=== PATIENT | female | born 1930 | race Caucasian/White ===

== ENCOUNTER → 2016-12-04 | Outpatient (CLI) | payer OTHER ==
[~2016-12-04] MED LIST: ASPI81TA28 PO; CHOL100010 PO; EZET10TA63 PO; METO25TA56 PO; MULT-513 PO; POLY335019 PO; RANI150T3 PO; TRIA3AER NAE; ZOLP5TAB6 PO
[2016-12-04 17:34] LABS: BASO % 0.5 %; BASO ABS # 0.02 K/uL (0-0.2); COMPLETE YES; EOS % 5.4 %; HEMATOCRIT 37.6 % (37-47); LYMPH ABS # 1.45 K/uL (1.2-3.4); MEAN CELL VOLUME 94.7 fL (80-100); MEAN CORPUSCULAR HEMOGLOBIN 31.7 pg (25-34); MEAN CORPUSCULAR HGB CONC 33.5 g/dl (32-36); MEAN PLATELET VOLUME 9.5 fL (7.4-10.4); MONO % 11.5 %; NEUT % 48.6 %; PLATELET COUNT 193 K/uL (130-400); RED BLOOD COUNT 3.97 M/uL (4.2-5.4); WHITE BLOOD COUNT 4.26 K/uL (4.8-10.8)
[2016-12-04 17:51] LABS: BLOOD UREA NITROGEN 31 mg/dl (7-18); GLUCOSE 82 mg/dl (70-99)
[2016-12-04 17:52] LABS: ALT/SGPT 33 U/L (12-78); AST/SGOT 23 U/L (15-37); BUN/CREATININE RATIO 28.5 (10-20); CALCIUM 8.9 mg/dl (8.5-10.1); CARBON DIOXIDE 30 mmol/L (21-32); CHLORIDE 106 mmol/L (98-107); SODIUM 142 mmol/L (136-145)
[2016-12-04 18:02] LABS: ALB/GLOB RATIO 1.4 (0.9-2); ALKALINE PHOSPHATASE 48 U/L (45-117); CHOLESTEROL 155 mg/dl (0-200); CHOLESTEROL/HDL RATIO 2.3; HDL CHOLESTEROL 68 mg/dl; LDL CHOLESTEROL CALCULATED 72 mg/dl; TRIGLYCERIDES 73 mg/dl (0-150); VERY LOW DENSITY LIPOPROT CALC 15 mg/dl
== END | disposition home or self-care (01) ==
LOC: C.LABPBG 14:36
PROVIDERS: ATTEND Internal Medicine Geriatric Medicine
DX: I47.1 Supraventricular tachycardia (principal); I10 Essential (primary) hypertension; M19.90 Unspecified osteoarthritis, unspecified site; E78.5 Hyperlipidemia, unspecified; D72.819 Decreased white blood cell count, unspecified; E55.9 Vitamin D deficiency, unspecified; R00.1 Bradycardia, unspecified; S83.519A Sprain of anterior cruciate ligament of unspecified knee, initial encounter; X58.XXXA Exposure to other specified factors, initial encounter

== ENCOUNTER → 2017-04-30 | Outpatient (CLI) | payer OTHER ==
--- NOTE | 2017-04-30 13:31 | MAMMOGRAPHY REPORT ---
BILATERAL DIGITAL SCREENING MAMMOGRAM WITH CAD: 04/30/2017 CLINICAL HISTORY: Routine screening. Patient has no complaints. TECHNIQUE: Bilateral CC and MLO views were obtained. Current study was also evaluated with a Comput er Aided Detection (CAD) system. COMPARISON: Comparison is made to exams dated: 04/25/2015 mammogram, 04/27/2016 mammogram, 04/28/2014 m ammogram, 04/21/2014 mammogram, 04/20/2013 mammogram, and 04/03/2012 mammogram - [facility] enter. BREAST COMPOSITION: There are scattered areas of fibroglandular density in both breasts. FINDINGS: There are a few scattered benign round microcalcifications and mild vascular calcification in the breasts. Stable asymmetry in the lateral right breast. No new suspicious mass, architectural distortion or cluster of microcalcifications is seen. IMPRESSION: ACR BI-RADS CATEGORY 1: NEGATIVE There is no mammographic evidence of malignancy. A 1 year screening mammogram is recommended. The pa tient will receive written notification of the results. Approximately 10% of breast cancers are not detected with mammography. A negative mammographic report should not delay biopsy if a clinically suggestive mass is present. Jolene Mcclure M.D. ay/:04/30/2017 12:36:05 Legal Process Specialist: Grace Francis, [facility] letter sent: Normal 1/2 BI-RADS Code: ACR BI-RADS Category 1: Negative
== END | disposition home or self-care (01) ==
LOC: C.MAMM 10:31
PROVIDERS: ATTEND Internal Medicine Geriatric Medicine
DX: Z12.31 Encounter for screening mammogram for malignant neoplasm of breast (principal)

== ENCOUNTER → 2017-05-02 | Outpatient (CLI) | payer OTHER ==
--- NOTE | 2017-05-03 06:01 | PAP/PSG TECHNICIAN REPORT ---
[facility] Fitting Room Supervisor Polysomnogram Report Study name: None Report date: 05/03/2017 Study date: 05/02/2017 Referring Physician: Carlos Austin M.D. Name: LUCIA ROBLES Interpreting Physician: Alfred Cole M.D. Date of : 1930 Fitting Room Supervisor: Manisha Bishop [facility]. Sex: Female Age: 86 Study Type: PSG Weight: 137 lbs Height: 86 years, Height 5' 2.5" BMI: 24.66 Medications: POLYETHYLENE GLYCOL, ZETIA 10 MG, ZOLPIDEM TARTRATE 5 MG, ASPIRIN 81 MG, METORPOLOL 25 MG, TRIAMCINOLONE ACETONIDE, MULTI VITS, VIT D 1000 UNIT, ZANTAC 150 MG Patient History 86 yr-old female here for a baseline/split study. She has had previous sleep testing in 2008. She is back to assess her SONIA. The test was started on room air. ETCO2 testing was not utilized during this study. Room 6 Parameters Monitored NPSG: E1-M2, E2-M1, Fp1-M2, Fp2-M1, F3-M2, F4-M2, F4-M1, C3-M2, C4-M2, C4-M1, O1-M2, O2-M2, O2-M1, T3-M2, T4-M1, P3-M2, P4-M1, CHIN1, CHIN2, HR, EKG, Legs, PFLOW, SNOR, FLOW, CFLOW, Tidal Volume, THOR, ABDO, SpO2, PLTH, CPRESS, ETCO2 Wave, ETCO2, pH Sleep Architecture Sleep Stages Time at Lights Off 10:45:13 PM STAGES Time (min.) TST (%) Time at Lights On 5:31:43 AM Wake 149.0 -- Total Recording Time (TRT) 406.50 min. N1 27.5 11 Total Sleep Period (TSP) 387.0 min. N2 170.5 66 Total Sleep Time (TST) 257.5min. N3 10.0 4 Awake Time 149.0 min. REM 49.5 19 Wake after Sleep Onset 129.5 min. Sleep Efficiency (SE) 63 % Sleep Onset Latency (ELISABETH) 19.5 min. Number of Stage 1 Shifts None Awakenings 12 Stage Changes 71 Number of REM periods 2 REM 49.5 19 REM Latency 183.5 min. NREM 208.0 81 Body Position Analysis Supine Right Left Side Prone Vertical Total Sleep Time (min.) 406.5 0.0 0.0 0.00 0.0 0.0 Total Sleep Time (%) 100% 0% 0% 0 0% N/A% Total Sleep Time REM (min.) 49.5 0.0 0.0 None 0.0 0.0 Total Sleep Time NREM (min.) 208.0 0.0 0.0 None 0.0 0.0 Intermittent Wake (min.) 149.0 0.0 0.0 None 0.0 0.0 Total Sleep Period (%) 100% None None None None None Arousals Myoclonus (PLM) * Events Count Index Events Count Index Spontaneous 17 4 Events Awake (PLMW) 152 61.2 Respiratory 5 1.4 Events Asleep w/ Arousal (PLMA) 16 3.7 PLM 16 4 Events Asleep w/o Arousal (PLMS) 220 51.3 Snoring 0 0 Total Asleep 236 55.0 Total 38 9 Total 388 57 Respiratory Analysis * CA OA MA CH H RERA Total Count 0 69 0 0 74 3 143 Index 0.0 16.1 0.0 0 17.2 1 34.0 Mean Duration 0.0 21.5 0.0 0.00 24.3 21.6 22.9 Longest Duration 0.0 52.8 0.0 0.00 0.0 26.2 52.8 Respiratory Event Summary Total Supine ~Supine Right Left Prone REM NREM Apneas Count 69 69 N/A N/A N/A N/A 18 51 Index 16.1 16 N/A N/A N/A N/A 22 15 Hypopneas (4% Desat) Count 74 74 N/A N/A N/A N/A 21 53 Index 17.2 17.2 N/A N/A N/A N/A 25.5 15.3 Apneas & All Hypopneas Count 143 143 N/A N/A N/A N/A 39 104 Index 33.3 33 N/A N/A N/A N/A 47.3 30.0 Respiratory Events (Inspector Water Pollution Control+All Hyp+RERA) Count 143 146 N/A N/A N/A N/A 39 104 Index 34.0 34 N/A N/A N/A N/A 47.3 30.9 Respiratory Related Arousal Count 5 146 N/A N/A N/A N/A 1 5 Index 1.4 1 N/A N/A N/A N/A 1 1 Snoring Analysis Supine Right Left Prone REM NREM Total Snore duration 8.8 min Snores count 430 N/A N/A N/A 114 316 430 Snore mean duration 1.2 Sec Snores index 100 N/A N/A N/A 138.2 91.2 100.2 TST with snoring (%) 3.4% Desaturation Event Summary: Minimum %SpO2 Event Count Mean/Min/Max Duration(sec.) Desaturation Index % Time In Bed > 90 136 26.2 / 5.8 / 59.8 29.7 70.8 86 - 90 21 23.5 / 11.0 / 59.8 11.6 28.1 81 - 85 2 10.6 / 4.5 / 16.8 30.1 1.0 76 - 80 0 N/A 0.0 0.0 71 - 75 1 4.5 / 4.5 / 4.5 800.0 0.0 66 - 70 0 N/A 0.0 0.0 61 - 65 0 N/A 0.0 0.0 56 - 60 0 N/A 0.0 0.0 51 - 55 0 N/A 0.0 0.0 < 50 0 N/A 0.0 0.0 Total REM NREM Awake <50% 0.0 min. 0.0 min. 0.0 min. 0.0 min. 51 - 60% 0.0 min. 0.0 min. 0.0 min. 0.0 min. 61 - 70% 0.0 min. 0.0 min. 0.0 min. 0.0 min. 71 - 80% 0.2 min. 0.0 min. 0.1 min. 0.1 min. 81 - 90% 113.1 min. 22.7 min. 83.8 min. 6.5 min. 91 - 100% 275.1 min. 26.8 min. 124.0 min. 124.3 min. Average 92 90 91 93 Minimum SpO2 73 81 79 73 Desaturation Event Index 21.1 40.0 27.1 6.4 # Desat. Events below 89% 59 25 31 3 Time(%) with Saturation below 89% 4.9 2.8 2.0 0.1 Time(min.) with Saturation below 89% 19.1 10.8 7.7 0.6 Time (mins) REM (mins) NREM (mins) % of TST SpO2 Below 90% 124 33 N91 18.7 SpO2 Below 88% 26 0 0 4 Heart Rate Analysis Min (bpm) Max (bpm) Average (bpm) Awake 53 281 61 NREM 51 69 56 REM 52 66 55 Overall 51 69 56 Supplemental O2 Values Minimum O2 level: None Value Start Time End Time Fitting Room Supervisor Comments Ms. Robles slept only in the supine position. No cardiac arrhythmias were noted. PLMs were noted. No bruxism noted. Snoring was noted and scored as a 2 on a scale of 1 through 5. (0=no snoring, 5=snoring loud enough to be heard through a closed door or down the hicks way) She awoke to use the restroom two times during the night. Ms. Robles stated that she slept almost like usual. The final report will be interpreted and signed by a sleep physician. The completed physician report will then be placed in the patient medical record. Therapy (cm H2O) 0 TIB (min.) 406.5 TST (min.) 257.5 Sleep Onset (min.) 19.5 REM Onset From Sleep (min.) 183.5 Sleep Efficiency % 63 Wakefulness (%) 37 Wakefulness (min.) 149.0 NREM 1 (%) 11 NREM 1 (min.) 27.5 NREM 2 (%) 66 NREM 2 (min.) 170.5 NREM 3 (%) 4 NREM 3 (min.) 10.0 REM (%) 19 REM (min.) 49.5 # Arousals 38 Arousal Index 9 # Snore 430 Snore Index 100.2 AHI 33.3 AHI Supine 33 AHI Non-Supine N/A NREM AHI 30.0 REM AHI 47.3 RDI 34.0 # Obstructive Apnea 69 # Central Apnea 0 # Mixed Apnea 0 # Hypopneas 74 RERAs 3 Total Respiratory Events 146 Time Below SpO2 89% (min.) 18.6 Mean NREM SpO2 (%) 91 Mean REM SpO2 (%) 90 Mean Sleep SpO2 (%) 91 Min NREM SpO2 (%) 79 Min REM SpO2 (%) 81 Position Supine (min.) 406.5 Position Non-supine (min.) 0.0 LM Index Sleep 55.0 LM Index NREM 60.3 LM Index REM 32.7 Mean Heart Rate (bpm) 56 Min Heart Rate (bpm) 51
--- NOTE | 2017-05-03 10:00 | POLYSOMNOGRAPH REPORT ---
CLINICAL DATA: The patient is an 86-year-old female with BMI of 24.[address] Carlos Austin for a baseline/split night study. She had previous sleep testing in 2008 and is back to assess her sleep apnea. SLEEP ARCHITECTURE: Total recording time was 406.5 minutes. Total sleep period was 387 minutes. Total sleep time was 257.5 minutes divided between 208 minutes of non-REM sleep and 49.5 minutes of REM sleep. Sleep onset latency was 19.5 minutes. REM latency was delayed at 183.5 minutes. Sleep efficiency was 63%. Wake after sleep onset was 129.5 minutes. Sleep consisted of stage N1 11%, stage N2 66%, stage N3 4%, and REM 19%. AROUSAL DATA: 38 arousals were recorded for an index of 9 per hour. PLM DATA: Severe PLMD was noted. There were 236 limb movements during sleep noted for an index of 55 per hour with arousal index of 3.7 per hour. RESPIRATORY DATA: Severe sleep apnea was documented. The AHI was 33.3. There were 69 obstructive apneic episodes. The longest apneic episode was 52.8 seconds. There were 74 hypopneas with a mean duration of 24.3 seconds. OXIMETRY DATA: Nocturnal hypoxemia was seen. Oxygen nitish was 79% during non-REM sleep. The mean saturation was 92%. Time below 88% was 26 minutes. EKG: Heart rates ranged from 51-69 beats per minute. No arrhythmias were noted. SEWAGE TREATMENT PLANT OPERATOR'S COMMENTS: The patient slept supine. Snoring was moderate, rated 2 on a scale of 1 through 5. She awoke twice to use the restroom. IMPRESSION: Severe sleep apnea/hypopnea with diagnostic AHI of 33.3 with nocturnal hypoxemia. The patient did not achieve split night criteria early enough in the study to institute CPAP. RECOMMENDATIONS: The patient may benefit from a repeat sleep study with CPAP or use of auto CPAP. Clinical correlation is needed. [facility]
== END | disposition home or self-care (01) ==
LOC: C.NEUR 20:00
PROVIDERS: ATTEND Internal Medicine Geriatric Medicine
DX: G47.30 Sleep apnea, unspecified (principal)

== ENCOUNTER → 2017-05-28 | Outpatient (CLI) | payer OTHER ==
[~2017-05-28] VITALS: Ht 160 cm; Wt 62.3 kg
[2017-05-28 15:20] VITALS: BP 144/46; PULSE 65; Ht 160 cm; Wt 62.3 kg
== END | disposition home or self-care (01) ==
LOC: C.NEUR 14:50
PROVIDERS: ATTEND Internal Medicine Pulmonary Disease
DX: G47.30 Sleep apnea, unspecified (principal); I47.1 Supraventricular tachycardia

== ENCOUNTER → 2017-06-18 | Outpatient (CLI) | payer OTHER ==
[2017-06-18 17:27] LABS: BASO % 0.5 %; BASO ABS # 0.02 K/uL (0-0.2); COMPLETE YES; EOS % 6.1 %; HEMATOCRIT 36.5 % (37-47); IG% 0.3 %; LYMPH % 21.6 %; LYMPH ABS # 0.85 K/uL (1.2-3.4); MEAN CELL VOLUME 96.6 fL (80-100); MEAN CORPUSCULAR HGB CONC 33.2 g/dl (32-36); MEAN PLATELET VOLUME 9.5 fL (7.4-10.4); NEUT % 58.5 %; PLATELET COUNT 168 K/uL (130-400); RED BLOOD COUNT 3.78 M/uL (4.2-5.4); WHITE BLOOD COUNT 3.93 K/uL (4.8-10.8)
[2017-06-18 17:36] LABS: BLOOD UREA NITROGEN 25 mg/dl (7-18); BUN/CREATININE RATIO 28.1 (10-20); CALCIUM 9.1 mg/dl (8.5-10.1); CARBON DIOXIDE 29 mmol/L (21-32); CHLORIDE 108 mmol/L (98-107); CHOLESTEROL 155 mg/dl (0-200); CREATININE 0.89 mg/dl (0.60-1.20); GLUCOSE 78 mg/dl (70-99); POTASSIUM 4.3 mmol/L (3.5-5.1); SODIUM 142 mmol/L (136-145)
[2017-06-18 17:46] LABS: CHOLESTEROL/HDL RATIO 2.3; FERRITIN 99.2 ng/ml (8.0-388.0); HDL CHOLESTEROL 67 mg/dl; LDL CHOLESTEROL CALCULATED 72 mg/dl; TRIGLYCERIDES 82 mg/dl (0-150); VERY LOW DENSITY LIPOPROT CALC 16 mg/dl
--- NOTE | 2017-06-27 10:09 | CODING QUERY MEDICAL NECESSITY ---
SUPPORTING DIAGNOSIS NEEDED A supporting diagnosis is required for the test/procedure performed on this patient in order for us to be reimbursed by the patient's insurance. Please provide a supporting diagnosis for the following test/procedure listed below next to the test name along with your signature. *If there is no additional diagnosis for this patient that would support the following test/procedure please document that below next to the test/procedure. Test(s)/Procedure(s) that require a supporting diagnosis: * VITAMIN B12 DIAGNOSIS: Provider Signature: Date: Thank you Laura [place] [employer] Information Management Once completed, please kindly fax back to [phone] For questions please call [phone]
== END | disposition home or self-care (01) ==
LOC: C.LABPBG 11:27
PROVIDERS: ATTEND Internal Medicine Geriatric Medicine
DX: I10 Essential (primary) hypertension (principal); E78.5 Hyperlipidemia, unspecified; D72.819 Decreased white blood cell count, unspecified; J45.909 Unspecified asthma, uncomplicated; G47.61 Periodic limb movement disorder; M85.80 Other specified disorders of bone density and structure, unspecified site; E55.9 Vitamin D deficiency, unspecified; M48.06 Spinal stenosis, lumbar region; R41.81 Age-related cognitive decline

== ENCOUNTER → 2017-12-10 | Outpatient (CLI) | payer OTHER ==
[2017-12-10 12:28] LABS: BASO % 0.8 %; BASO ABS # 0.03 K/uL (0-0.2); EOS ABS # 0.27 K/uL (0-0.5); HEMATOCRIT 36.2 % (37-47); HEMOGLOBIN 11.7 g/dL (12.0-16.0); IG# 0.01 K/uL (0.00-0.02); LYMPH % 23.4 %; MEAN CELL VOLUME 96.8 fL (80-100); MEAN CORPUSCULAR HEMOGLOBIN 31.3 pg (25-34); MEAN CORPUSCULAR HGB CONC 32.3 g/dl (32-36); MEAN PLATELET VOLUME 9.6 fL (7.4-10.4); MONO % 13.3 %; MONO ABS # 0.51 K/uL (0.11-0.59); NEUT % 55.2 %; NEUT ABS # 2.12 K/uL (1.4-6.5); PLATELET COUNT 182 K/uL (130-400); RED CELL DISTRIBUTION WIDTH CV 15.1 % (11.5-14.5); RED CELL DISTRIBUTION WIDTH SD 53.4 fL (36.4-46.3); WHITE BLOOD COUNT 3.84 K/uL (4.8-10.8)
[2017-12-10 13:17] LABS: BLOOD UREA NITROGEN 27 mg/dl (7-18); CALCIUM 9.3 mg/dl (8.5-10.1); CARBON DIOXIDE 27 mmol/L (21-32); CREATININE 0.91 mg/dl (0.60-1.20); GLUCOSE 83 mg/dl (70-99); POTASSIUM 4.4 mmol/L (3.5-5.1); SODIUM 139 mmol/L (136-145)
== END | disposition home or self-care (01) ==
LOC: C.LABPBG 10:49
PROVIDERS: ATTEND Internal Medicine Geriatric Medicine
DX: I10 Essential (primary) hypertension (principal); D72.819 Decreased white blood cell count, unspecified

== ENCOUNTER 2018-05-14 10:26 | Inpatient (IN) | payer OTHER ==
[2018-04-16 09:25] VITALS: BMI 21.0
[2018-04-18 12:30] VITALS: BMI 23.0
--- NOTE | 2018-04-18 13:15 | PAT Medication Instructions ---
Service Date Apr 18, 2018. Current Home Medication List Aspirin (Aspirin Ec), 81 MG PO QAM Cholecalciferol (D 2000), 1 TAB PO QPM Ezetimibe (Zetia), 10 MG PO QAM Metoprolol Tartrate (Lopressor) (Lopressor), 25 MG PO BID Multivitamins/Minerals (Mvi With Minerals), 1 TAB PO QAM Polyethylene Glycol 3350 (Miralax), 8 OZ PO DAILY PRN for Constipation Ranitidine Hcl (Zantac), 150 MG PO DAILY PRN for PRN Triamcinolone Acetonide (Nasal (Nasacort Allergy 24Hr), 2 SPRAYS JAME QD PRN for Seasonal Allergies Medication Instructions For Your Scheduled Surgery - Hold the following medications the morning of surgery: Multivitamins/Minerals (Mvi With Minerals), 1 TAB PO QAM Polyethylene Glycol 3350 (Miralax), 8 OZ PO DAILY PRN for Constipation - Take the following medications the morning of surgery with a sip of water: Aspirin (Aspirin Ec), 81 MG PO QAM Ezetimibe (Zetia), 10 MG PO QAM Metoprolol Tartrate (Lopressor) (Lopressor), 25 MG PO BID Ranitidine Hcl (Zantac), 150 MG PO DAILY PRN for PRN (if needed) Triamcinolone Acetonide (Nasal (Nasacort Allergy 24Hr), 2 SPRAYS JAME QD PRN for Seasonal Allergies (if needed) - Take the following medications as scheduled the night before surgery: Cholecalciferol (D 2000), 1 TAB PO QPM Metoprolol Tartrate (Lopressor) (Lopressor), 25 MG PO BID Polyethylene Glycol 3350 (Miralax), 8 OZ PO DAILY PRN for Constipation (if needed) Ranitidine Hcl (Zantac), 150 MG PO DAILY PRN for PRN Triamcinolone Acetonide (Nasal (Nasacort Allergy 24Hr), 2 SPRAYS JAME QD PRN for Seasonal Allergies (if needed) If you have any questions please call us at [phone] or [phone] or [phone]
--- NOTE | 2018-05-10 13:24 | HISTORY & PHYSICAL EXAMINATION ---
DATE OF ADMISSION: 05/14/2018 CHIEF COMPLAINT: Bilateral knee pain and discomfort, right side greater than left. HISTORY OF PRESENT ILLNESS: An 87-year-old white female who presents for treatment of her knees. She has got a very long history of bilateral knee pain and discomfort, right side quite a bit worse than the left. She has been through extensive conservative treatment over the past several years including steroid shots and viscosupplementation which have become less successful over time. Her knee pain is really limiting her activities. She has been using a cane due to pain and discomfort. The right side is a bit worse than the left. She is really fed up with discomfort and limitations and would like to have her right knee fixed. PAST MEDICAL HISTORY: Significant for; 1. Unspecified heart disease with occasional beat skipping and a negative catheterization. 2. Hypertension. 3. Spinal stenosis. 4. Sleep apnea. 5. Asthma. 6. Low white blood cell count. 7. Gastroesophageal reflux disease. PAST SURGICAL HISTORY: Previous surgeries include: 1. Bilateral shoulder replacements done by Dr. Angeles 15 years ago. 2. Cholecystectomy. 3. Left wrist surgery. 4. Right thumb surgery. 5. L4-L5 fusion by Dr. Albert. ALLERGIES: None. CURRENT MEDICINES: Include: 1. Aspirin 81 mg. 2. Vitamin D 2000 units a day. 3. Zetia 10 mg a day. 4. Metoprolol 25 mg twice a day. 5. Multivitamin. 6. Polyethylene glycol once a day. 7. Ranitidine 150 mg once a day. 8. Nasacort 2 sprays in each nostril p.r.n. SOCIAL HISTORY: This is an 87-year-old female. She is . Does not smoke. FAMILY HISTORY: Significant for heart disease, stroke, dementia, and diabetes. REVIEW OF SYSTEMS: Negative for diabetes, neurologic problems, vascular problems or bleeding disorders. No current chest pain or shortness of breath. No history of DVT or PE. PHYSICAL EXAMINATION: GENERAL: A healthy, thin, somewhat frail elderly female. HEENT: Benign. NECK: Supple, no lymphadenopathy. LUNGS: Clear to auscultation. HEART: Regular rate and rhythm. ABDOMEN: Soft, nontender, nondistended. EXTREMITIES: Grossly neurovascularly intact except as follows: Examination of the right knee reveals patient walks with the use of a cane. She does limp on the right side. She has got a fairly slow gait. Her range of motion about 5-10 degrees, show full extension, about 120 degrees of flexion. There is no instability. No pain with hip motion. She is neurologically intact. X-RAYS: X-rays of the knees reveal bilateral advanced DJD. The right side is a bit worse than the left. She has complete loss of her joint space and subchondral sclerosis. ASSESSMENT: An 87-year-old female with advanced bilateral knee pain, degenerative joint disease, right side worse than the left. She has failed conservative treatment which is limiting her activities and she would like to have her right knee replaced. PLAN: We will take her to the operating room and do a right total knee replacement. The risks and benefits of this procedure were explained to the patient including but not limited to DVT, PE, , infection, neurological injury, vascular injury, bleeding problem, pain, limited range of motion, stiffness, failure to relieve symptoms, incomplete relief of symptoms, need for further surgery in future, fracture, leg length inequality, nerve palsy, need for revision surgery were discussed. The patient understands and desires to proceed. Informed consent was obtained. We did talk to her about taking her metoprolol the morning of surgery. She is hoping to be discharged to [facility] or long term facility for recovery. I will see her back in 2 weeks postop.
[2018-05-14] VITALS (8 sets, daily range): BP systolic 127–159; BP diastolic 70–87; PULSE 50–60; TEMP 36.4–36.8; O2SAT 94–100; Ht 160 cm; Wt 58.9 kg
[~2018-05-14] VITALS: Ht 160 cm; Wt 58.9 kg
[~2018-05-14 10:26] MED LIST changes: +ACETAMINOPHEN 500 MG TAB PO SCH; +ATROPINE SULFATE 0.1 MG/ML 5ML SYR IV PRN; +BUPIVACAINE 0.25% 30 ML VIAL ONE; +BUPIVACAINE 0.5 % 5 MG/1 ML PF 10ML VIAL ONE; +BUPIVACAINE LIPOSOME 266 MG, BUPIVACAINE/EPINEPHRINE INJ 50 ML, SODIUM CHLORIDE 0.9% PF... INFIL SCH; +CEFAZOLIN 2000MG IV PUSH 15 ML IV SCH; -CHOL100010 PO; +CHOL1TAB76 PO; +EpHEDrine SULFATE INJ 50 MG/ML AMP IV PRN; +FAMOTIDINE 20 MG TAB PO SCH; +FENTANYL CITRATE INJ 50 MCG/1 ML 2 ML VIAL IV PRN; +GABAPENTIN 300 MG CAP PO SCH; +LACTATED RINGER'S 1000ML 1,000 ML IV SCH; +LACTATED RINGER'S 1000ML 500 ML IV SCH; +LACTATED RINGER'S 1000ML IV SCH; +METOCLOPRAMIDE HCL 10 MG TAB PO SCH; +ONDANSETRON INJ 2 MG/ML 2 ML VIAL IV PRN; +TRIA1SPR4 NAE; -TRIA3AER NAE; -ZOLP5TAB6 PO
--- NOTE | 2018-05-14 11:25 | History & Physical Bridge Note ---
H&P Re-Evaluation Bridge Note: I have examined the patient, reviewed the History & Physical and in the interval since the performance of the History & Physical I have noted the following changes of clinical significance: No changes noted
[2018-05-14] MEDS ORDERED: NURSING VERBAL MED ORDER ONE ×2 (12:15→12:45)
[2018-05-14] MEDS ORDERED: PROPOFOL IV EMULSION 10 MG/ML 20 ML VIAL ONE (12:30)
[2018-05-14] MEDS ORDERED: LIDOCAINE HCL 2% 2 ML VIAL (20MG/ML) ONE (12:30)
[2018-05-14] MEDS ORDERED: MIDAZOLAM HCL 1 MG/ML 2ML VIAL ONE (12:31)
[2018-05-14] MEDS ORDERED: FENTANYL CITRATE INJ 50 MCG/1 ML 2 ML VIAL ONE (12:31)
[2018-05-14] MEDS ORDERED: BUPIVACAINE LIPOSOME 1/3% 266 MG/20 ML VIAL ONE (12:52)
[2018-05-14] MEDS ORDERED: SODIUM CHLORIDE 0.9% PF 50 ML VIAL ONE (12:52)
[2018-05-14] MEDS ORDERED: BACITRACIN 50000 UNIT VIAL ONE (12:52)
[2018-05-14] MEDS ORDERED: BUPIVACAINE 0.25% 30 ML VIAL ONE (12:53)
[2018-05-14] MEDS ORDERED: EpINEphrine INJ 1MG/ML AMP 1 MG/ML AMP ONE (12:53)
[2018-05-14] MEDS ORDERED: TRANEXAMIC ACID INJ 1,000 MG x 1 Bag Intra-Op IV SCH ×2 (13:00)
--- NOTE | 2018-05-14 15:21 | [facility] Post Operative Brief Note ---
Immediate Operative Summary Operative Date May 14, 2018. Pre-Operative Diagnosis Degenerative Joint Disease, Right Knee Post-Operative Diagnosis Degenerative Joint Disease, Right Knee Procedure(s) Performed Right Total Knee Arthroplasty Surgeon Dr. Ángel Maxwell Print Cutter Surgeon(s) Patel Solorio PA-C Estimated Blood Loss 200 ml Findings Consistent with Post-Op Diagnosis Fluids (cc crystalloids) 1200 cc Specimens a. Bone and Tissue, Right Knee Drains None Anesthesia Type MAC Spinal Regional Complication(s) none Disposition Accompanied Pt To Recover: no Disposition: Recovery Room / PACU Overlapping Procedure I was present for: the critical portions of procedure. I was immediately available: during the entire case
[2018-05-14] MEDS ORDERED: MAGNESIUM HYDROXIDE SUSP 30 ML UDC PO PRN (15:30)
[2018-05-14] MEDS ORDERED: METOCLOPRAMIDE HCL INJ 5 MG/ML 2 ML VIAL IV PRN (15:30)
[2018-05-14] MEDS ORDERED: ZOLPIDEM TARTRATE 5 MG TAB PO PRN (15:30)
[2018-05-14] MEDS ORDERED: ONDANSETRON INJ 2 MG/ML 2 ML VIAL IV PRN (15:30)
[2018-05-14] MEDS ORDERED: BISACODYL 10 MG SUPP PR PRN (15:30)
[2018-05-14] MEDS ORDERED: ALUMINUM/MAGNESIUM/SIMETH (MAALOX MAX) 30 ML UDC PO PRN (15:30)
[2018-05-14] MEDS ORDERED: HYDROmorphone INJ 0.5 MG/0.5 ML SYR IV PRN (15:30)
[2018-05-14] MEDS ORDERED: SILVER SULFADIAZINE 1% CR 50 GM JAR EXT PRN (15:30)
[2018-05-14] MEDS ORDERED: TRAMADOL HCL 50 MG TAB PO PRN (15:30)
[2018-05-14] MEDS ORDERED: TRIAMCINOLONE ACET NASAL SPRAY 10.8ML BTL NAE PRN (15:30)
[2018-05-14] MEDS ORDERED: RANITIDINE HCL 150 MG TAB PO PRN (15:30)
--- NOTE | 2018-05-14 15:59 | Anesthesiology Progress Note ---
Anesthesia Post Op Note Date & Time May 14, 2018 at 15:59 Vital Signs Pain Intensity: 0 Vital Signs Past 12 Hours Date Time Temp Pulse Resp B/P (MAP) Pulse Ox O2 Delivery O2 Flow Rate FiO2 05/14/18 15:45 65 12 121/66 100 Nasal Cannula 2 05/14/18 15:35 56 16 125/70 100 Nasal Cannula 2 05/14/18 15:25 36.7 58 18 123/65 98 Nasal Cannula 2 05/14/18 11:00 36.8 60 20 159/87 98 Room Air Notes Mental Status: alert / awake / arousable, participated in evaluation Pt Amnestic to Procedure: Yes Nausea / Vomiting: adequately controlled Pain: adequately controlled Airway Patency, RR, SpO2: stable & adequate BP & HR: stable & adequate Hydration State: stable & adequate Anesthetic Complications: no major complications apparent
[2018-05-14] MEDS ORDERED: POLYETHYLENE (MIRALAX) 17 GM PACK PO PRN (16:00)
--- NOTE | 2018-05-14 16:01 | DIAGNOSTIC IMAGING REPORT ---
R KNEE 1 OR 2 VIEWS ROUTINE CLINICAL HISTORY: AP/LATERAL IN PACU RIGHT KNEE pain COMPARISON: 05/15/2016 DISCUSSION: Anatomic alignment posttotal joint replacement. Good contact between prosthetic and underlying bone. Expected soft tissue postoperative change IMPRESSION: Anatomic alignment post right knee arthroplasty. The above report was generated using voice recognition software. It may contain grammatical, syntax or spelling errors. Electronically signed by: Flavio Li M.D. 05/14/2018 4:00 PM Dictated Date/Time: 05/14/2018 3:58 PM
[2018-05-14] MEDS: FERROUS GLUCONATE 324 MG TAB PO SCH (17:40)
[2018-05-14] MEDS: D5W AND 1/2NSS + 20MEQ KCL 1,000 ML IV SCH (17:40)
[2018-05-14] MEDS: KETOROLAC TROMETHAMINE 15 MG/ML VIAL IV. SCH ×2 (17:40→23:54)
--- NOTE | 2018-05-14 20:11 | OPERATIVE REPORT ---
DATE OF OPERATION: 05/14/2018 SURGEON: Mendez Maxwell MD MANAGEMENT DEVELOPER: MAXINE [place] PREOPERATIVE DIAGNOSIS: Right knee degenerative joint disease. POSTOPERATIVE DIAGNOSIS: Right knee degenerative joint disease. PROCEDURE PERFORMED: Right cemented posterior stabilized total knee arthroplasty. COMPLICATIONS: None. ESTIMATED BLOOD LOSS: 200 mL. FLUID REPLACEMENT: 1200 mL of crystalloid fluid replacement. TOURNIQUET TIME: 20 minutes at 350 mmHg. ANESTHESIA: Spinal with adductor canal block. DRAINS: None. SPECIMENS: Left knee sent for pathology. OPERATIVE INDICATIONS: The patient is an 87-year-old very active female who has had a long history of bilateral knee pain and discomfort, right side greater than left. She has been through extensive conservative treatment over the years without adequate relief. She was really just tired of the pain limiting her activities. X-rays show advanced DJD. She elected to proceed with total knee arthroplasty. OPERATIVE FINDINGS: Operative findings were advanced right knee DJD. She had extensive grade 4 changes of the medial femoral condyle and patellofemoral joint. She had less severe grade 4 changes laterally. Moderate size joint effusion. She had osteophytes in all 3 compartments. OPERATIVE IMPLANTS: Operative implants consisted of: 1. A Biomet Vanguard size 65 right posterior stabilized femoral component. 2. A Biomet size 67 tibial tray. 3. A 10 mm posterior stabilized polyethylene insert. 4. A 28 x 8 all poly patella. Tourniquet time was 20 minutes. The tourniquet was initially placed up at 300 mmHg throughout 15 minutes. She continued to have a lot of bleeding through this tourniquet, so we increased it to 350 for another 5 minutes. There was no effect in the bleeding, so we elected to leave the tourniquet down after 20 minutes. There was not any more bleeding and probably even a little bit less after we left the tourniquet down, so we decided to leave it down. OPERATIVE PROCEDURE: The patient taken to the operating room, identified, and placed on the operating table in supine position. All contact areas were appropriately padded. IV antibiotics were provided by the anesthesia team. A spinal anesthetic and adductor canal block was provided in the holding area. Trujillo catheter was placed in sterile fashion. A right thigh tourniquet was then placed. The right lower extremity was then prepped and draped in usual sterile fashion. The right leg was elevated, exsanguinated with Esmarch and tourniquet was placed at 300 mmHg. An anterior approach to the right knee was then performed through a longitudinal incision centered over the patella. Sharp dissection was carried through the subcutaneous tissue down to the level of the extensor mechanism. A medial parapatellar arthrotomy incision was made. Some subperiosteal dissection was carried out medially. The fat pad was dissected from beneath the patellar tendon. The lateral patellofemoral ligament was released. Patella was everted and knee was flexed. The osteophytes were taken off the distal femur. The ACL and PCL were released from the distal femur and the tibia subluxated anteriorly. The external tibial alignment jig was then placed in the anterior face of the tibia and adjusted 14 mm medially. Proximal tibial cut was made to remove about a millimeter or 2 of bone from most deficient aspect of the medial tibial plateau. At this point, we elected to increase the tourniquet to 350 mmHg. Attention was then drawn to the distal femur. The distal femur was entered with a sharp drill. The intramedullary canal was suctioned. A right 5 degree valgus cutting guide was placed. Distal femoral cutting block was pinned in place. Distal femoral cut was made to take an additional 3 mm of bone off the distal femur. The knee was then sized to a size 65. Then, the AP cutting block was placed parallel to the epicondylar axis which was 3 degrees of external rotation. The anterior cut, anterior chamfer, posterior cut, and posterior chamfer cuts were made. Box cutting guide was placed and adjusted slightly lateral and the box cut was made. At this point, there was no bleeding, so we elected to just leave the tourniquet down. The knee was flexed. The remnants of the medial and lateral menisci were excised. The osteophytes were taken off the posterior aspect of the femur. A trial femoral component was then placed. The tibial tray was pinned in maximum external rotation and a drill and stem punch were used to create defect in the proximal tibia for the tibial tray. The knee was then trialed and the 10 mm insert fit most appropriately. Attention was then drawn to the patella. The patella was cleaned off all soft tissues. The patellar thickness measured 18 mm thickness and we cut down to 12. It was sized to a size 28 patella. Lug holes were drilled for 28 patella. The lateral osteophyte was removed. The patella button was placed. Knee was taken through range of motion and patella tracked nicely with no thumbs test. Attention was then drawn toward placement of permanent components. All trial components were removed. A bone plug was placed in the distal femur to limit blood loss. A double batch of Palacos G cement was mixed. A Biomet Vanguard size 65 right posterior stabilized femoral component, size 67 tibial tray, 10 mm posterior stabilized polyethylene insert, 28 x 8 all poly patella then cemented in place. Knee was brought out into full extension until cement hardened and a final cement check was then performed. Pericapsular tissues were injected with 100 mL of a combination of 20 mL Exparel, 30 mL of normal saline, 50 mL of 0.25% Marcaine with epinephrine. The patient did receive 1 gram of tranexamic acid. The tourniquet was previously let down. Hemostasis was assured with the use of electrocautery. We irrigated the wound extensively. The extensor mechanism was then closed with a combination of #1 PDS suture and #1 Vicryl suture in a figure of eight fashion. The extensor mechanism was checked and found to be intact. The subcutaneous tissues were then closed with 3-0 Dexon suture in a buried interrupted fashion. Skin was closed with skin jet. Leg was then cleaned and dried. Sterile dressing of Xeroform, 4 x 4's, sterile cast padding, and Lex bandage were applied. The patient was transferred to recovery room in stable condition. The patient tolerated the procedure with no complications. All needle and sponge counts were correct at the end of the operation. I attest to the content of the Intraoperative Record and any orders documented therein. Any exception s are noted below.
[2018-05-14] MEDS: DOCUSATE SODIUM 100 MG CAP PO SCH (20:59)
[2018-05-14] MEDS: METOPROLOL TARTRATE 25 MG TAB PO SCH (21:00)
[2018-05-14] MEDS: CHOLECALCIFEROL 1000 INTER.UNIT TAB PO SCH (21:02)
[2018-05-14] MEDS: SENNA 8.6 MG TAB PO SCH (21:03)
[2018-05-14] MEDS: ASPIRIN 81 MG ECTAB PO SCH (21:03)
[2018-05-14] MEDS: ACETAMINOPHEN 500 MG TAB PO SCH (21:04)
[2018-05-14] MEDS ORDERED: TRANEXAMIC ACID INJ 1,000 MG in SODIUM CHLORIDE 0.9% 100ML 100 ML IV SCH (21:30)
[2018-05-14] MEDS: CEFAZOLIN IV 1,000 MG in SYRINGE 0 ML IV SCH (23:48)
[2018-05-15] MEDS: D5W AND 1/2NSS + 20MEQ KCL 1,000 ML IV SCH ×2 (02:14→13:00)
[2018-05-15 03:30] VITALS: BP 149/79; PULSE 61; TEMP 36.6; O2SAT 97
[2018-05-15] MEDS: KETOROLAC TROMETHAMINE 15 MG/ML VIAL IV. SCH ×3 (05:28→18:09)
[2018-05-15] MEDS: ACETAMINOPHEN 500 MG TAB PO SCH ×3 (05:29→21:35)
[2018-05-15 06:12] LABS: HEMATOCRIT 29.3 % (37-47); HEMOGLOBIN 9.5 g/dL (12.0-16.0); MEAN CELL VOLUME 95.8 fL (80-100); MEAN CORPUSCULAR HGB CONC 32.4 g/dl (32-36); MEAN PLATELET VOLUME 8.9 fL (7.4-10.4); PLATELET COUNT 123 K/uL (130-400); RED CELL DISTRIBUTION WIDTH CV 14.4 % (11.5-14.5); RED CELL DISTRIBUTION WIDTH SD 50.3 fL (36.4-46.3); WHITE BLOOD COUNT 4.08 K/uL (4.8-10.8)
[2018-05-15 06:37] LABS: CALCIUM 8.4 mg/dl (8.5-10.1); CREATININE 0.8 mg/dl (0.60-1.20); POTASSIUM 3.5 mmol/L (3.5-5.1)
[2018-05-15 06:47] VITALS: BP 124/70; PULSE 67; TEMP 36.6; O2SAT 97
--- NOTE | 2018-05-15 07:52 | PROGRESS NOTE ---
DATE: 05/15/2018 SUBJECTIVE: An 87-year-old white female postop day 1 from a right knee replacement. She is doing pretty well. A bit confused this morning. Denies much in the way of pain. No chest pain, no shortness of breath. OBJECTIVE: VITAL SIGNS: Temperature is 36.6. Stable. GENERAL: Exam reveals a pleasant elderly female. She is sitting up on her bedside. She seems pretty awake and alert and reasonably appropriate. May be with some mild confusion. RESPIRATORY: Her lungs are clear to auscultation. CARDIOVASCULAR: Heart has regular rate and rhythm. GASTROINTESTINAL: Abdomen is soft, nontender, nondistended. EXTREMITIES: Grossly neurovascularly intact except as follows: Examination of the right leg reveals dressing to be clean, dry, and intact. Leg is well aligned. She can dorsiflex and plantarflex her foot appropriately. She is neurologically intact. LABORATORY DATA: Hemoglobin 9.5, hematocrit 29.3. Electrolytes are stable. ASSESSMENT: An 87-year-old white female postop day 1 from her right knee replacement, doing reasonably well. Some mild confusion which is not too unexpected. Pain seems to be controlled. She is neurologically intact. PLAN: 1. DVT prophylaxis including thigh high TEDs, SCDs, and aspirin twice a day, 2. PT/OT. She can weightbear as tolerated. Right total knee protocol. 3. Pain control, doing well with current pain regimen. We are going to avoid all narcotics. Will use Tylenol, tramadol, and low dose Toradol for pain control. She is refusing Tylenol, but I think it would be okay to take if she is having pain. 4. Disposition: She is hoping to be discharged to [facility] for a brief rehab stay once medically stable.
[2018-05-15] MEDS: FERROUS GLUCONATE 324 MG TAB PO SCH ×3 (08:25→18:07)
[2018-05-15] MEDS: EZETIMIBE 10MG TAB PO SCH (08:25)
[2018-05-15] MEDS: CEFAZOLIN IV 1,000 MG in SYRINGE 0 ML IV SCH (08:25)
[2018-05-15] MEDS: CEROVITE ADV FORMULA TAB PO SCH (08:25)
[2018-05-15] MEDS: DOCUSATE SODIUM 100 MG CAP PO SCH ×2 (08:26→21:10)
[2018-05-15] MEDS: ASPIRIN 81 MG ECTAB PO SCH ×2 (08:26→21:11)
[2018-05-15] MEDS: METOPROLOL TARTRATE 25 MG TAB PO SCH ×2 (08:26→21:10)
[2018-05-15] MEDS: PANTOprazole SOD 40 MG TAB PO SCH (08:26)
[2018-05-15] MEDS ORDERED: MULTIVITAMIN TAB PO SCH (09:00)
[2018-05-15 11:18] VITALS: BP 109/63; PULSE 61; TEMP 37.4; O2SAT 99
[2018-05-15 15:28] VITALS: BP 133/69; PULSE 65; TEMP 36.8; O2SAT 98
[2018-05-15] MEDS: SENNA 8.6 MG TAB PO SCH (21:34)
[2018-05-15] MEDS: CHOLECALCIFEROL 1000 INTER.UNIT TAB PO SCH (21:34)
[2018-05-15] MEDS ORDERED: ACET-24 PO (21:37)
[2018-05-15] MEDS ORDERED: FRRG PO (21:37)
[2018-05-15] MEDS ORDERED: ULT50X PO (21:37)
[2018-05-15] MEDS ORDERED: ASPI-461 PO (21:37)
--- NOTE | 2018-05-15 21:40 | Discharge Instructions ---
Discharge Instructions Date of Service May 15, 2018. Admission Reason for Admission: Right Knee Degenerative Joint Disease Discharge Discharge Diagnosis / Problem: Right Knee Replacement Discharge Goals Goal(s): Decrease discomfort, Improve function, Increase independence, Improve disease control, Therapeutic intervention Activity Recommendations Activity Level: Assistance Required Therapies: Physical Therapy, Occupational Therapy . Additional Information Patient informed of condition: Yes Advance Directives: Yes DNR: No Level of Care: Acute Rehab Communicable Disease: No Prognosis: Improving Instructions / Follow-Up Instructions / Follow-Up ACTIVITY RECOMMENDATIONS: Physical Therapy: * You will go to physical therapy three times each week for four to six weeks after your surgery in order to regain your knee range of motion and to retrain your knee to work properly. * It is just as important to make sure you are getting your knee perfectly straight as it is to regain your knee bend. * Taking a pain pill an hour before therapy can help you have a more productive and comfortable therapy session. Home Exercise: * You were shown a series of exercises (heel props, heel slides, etc.) in the hospital. Do these exercises three to four times each day including the exercises you were shown in physical therapy. Walking: * Get up and walk several times each day. For the first four weeks, try not to stand or walk for more than one hour at a time. If you do stand or walk for more than one hour, you will not hurt anything, but your knee and leg will likely swell. * As you feel comfortable, you may change from the walker or crutches to a cane and then to independent walking. MEDICATIONS: New Medicine: * You will likely be taking one or more of these medications: 1. Tramadol - A quick and shorter-acting pain medication. Take one to two tablets every four to six hours to lessen your pain. 2. Iron Sulfate - Take two times each day for the month after surgery to help you replace the blood lost during surgery. 3. Aspirin - Thins your blood to lessen the chance of forming a blood clot. * The most common side effects of pain medicine and iron are nausea and constipation. If nausea or constipation is too much of a problem or if you have any questions about your new medicines or doses, call [facility] at . We will try to help you manage these issues. VERY IMPORTANT TO READ AND REVIEW" Pain: * The immediate post-operative period after knee replacement surgery is often quite painful. * You are given a prescription for pain medicine. You should take it, as directed, when you need it, especially before physical therapy and before going to bed. Pain that interferes with sleep is very common and can last several months. * You will likely need pain medicine for the first four to six weeks. It will not stop all of the pain. The pain will lessen and as you feel better, you may change to milder pain medicine such as Tylenol. * The most common side effects of pain medicine are nausea and constipation, so don't take more than you need. SPECIAL CARE INSTRUCTIONS: TEDs/Elastic Stockings: * The white elastic stockings help limit swelling and prevent blood clots from forming in your legs. The more you wear them, the more they work. * Wear them for six weeks after knee replacement surgery and four weeks after partial knee replacement. Prevention of Infection: * Take antibiotics one hour before any dental cleaning, dental work, urological procedure, gastrointestinal procedure or any invasive surgery in order to prevent your new joint from getting infected. * You may get the antibiotics from the doctor performing the procedure or you may call our office at before and we will call in a prescription to the pharmacy of your choice. Things to Watch For: * Drainage from the incision site that occurs more than one week after your surgery. * Severely increased knee/leg pain or swelling. * Increased redness at the incision site. * Fever above 102 degrees Fahrenheit. * Unusual chest pain or shortness of breath. * Unusual pain or burning with urination. Call [facility] at with any of the above problems or if you have any questions about your medicines or recovery. FOLLOW UP VISIT: Make an appointment to see your doctor for approximately two weeks after surgery for a progress check and staple removal by calling the office at . Current Hospital Diet Patient's current hospital diet: Regular Diet Discharge Diet Recommended Diet: Regular Diet Procedures Procedures Performed: Right Total Knee Arthroplasty Pending Studies Studies pending at discharge: no Medical Emergencies . Who to Call and When: Medical Emergencies: If at any time you feel your situation is an emergency, please call [phone] immediately. . Non-Emergent Contact Non-Emergency issues call your: Surgeon . . "Provider Documentation" section prepared by Mendez Maxwell. . Core Measure Problem Core Measures: None
[2018-05-15 22:50] VITALS: BP 154/72; PULSE 70; TEMP 36.5; O2SAT 98
[2018-05-16] MEDS: KETOROLAC TROMETHAMINE 15 MG/ML VIAL IV. SCH ×3 (00:16→12:17)
[2018-05-16] MEDS: ACETAMINOPHEN 500 MG TAB PO SCH ×2 (06:00→14:00)
[2018-05-16 07:45] VITALS: BP 134/78; PULSE 60; TEMP 36.7; O2SAT 99
--- NOTE | 2018-05-16 07:55 | PROGRESS NOTE ---
DATE: 05/16/2018 SUBJECTIVE An 87-year-old white female postop day 2 from a right knee replacement. She is doing well. Pain is controlled. She is less confused and seems pretty much at baseline this morning. She is awake, alert, and oriented. Denies any chest pain, no shortness of breath. OBJECTIVE: VITAL SIGNS: Temperature is 36.5. Stable. GENERAL: Examination reveals a pleasant elderly female. She is lying in bed. She is awake, alert, and oriented. EXTREMITIES: Examination of the right leg reveals the dressing in place, a little bit of bloody drainage. She can dorsiflex and plantarflex her foot appropriately. She is neurologically intact. ASSESSMENT: An 87-year-old female, postop day 2 from right knee replacement, doing reasonably well. Pain is reasonably well controlled. Confusion seems to be improved. PLAN: 1. DVT prophylaxis including thigh TEDs, SCDs, and aspirin twice a day. 2. PT/OT. Weight bear as tolerated. Right total knee protocol. 3. Pain control. We are going to stick to Tylenol as much as possible. Will add tramadol only as needed for severe pain. 4. Disposition: She is hoping to be discharged to a rehab for a brief rehab stay.
[2018-05-16 08:27] VITALS: PULSE 65
[2018-05-16] MEDS: CEROVITE ADV FORMULA TAB PO SCH (08:27)
[2018-05-16] MEDS: EZETIMIBE 10MG TAB PO SCH (08:27)
[2018-05-16] MEDS: FERROUS GLUCONATE 324 MG TAB PO SCH ×2 (08:27→12:30)
[2018-05-16] MEDS: PANTOprazole SOD 40 MG TAB PO SCH (08:27)
[2018-05-16] MEDS: METOPROLOL TARTRATE 25 MG TAB PO SCH (09:01)
[2018-05-16] MEDS: DOCUSATE SODIUM 100 MG CAP PO SCH (09:01)
[2018-05-16] MEDS: ASPIRIN 81 MG ECTAB PO SCH (09:01)
[2018-05-16 15:39] VITALS: BP 113/70; PULSE 59; TEMP 36.5; O2SAT 100
--- NOTE | 2018-05-20 21:01 | DISCHARGE SUMMARY ---
ADMITTING PHYSICIAN AND SURGEON: Mendez Maxwell MD ADMITTING DIAGNOSIS: Right knee degenerative joint disease. SURGERY PERFORMED: Right total knee arthroplasty. SECONDARY DIAGNOSES: Unspecified heart disease, hypertension, spinal stenosis, sleep apnea, asthma, low white blood cell count, gastroesophageal reflux disease. CONSULTS: None obtained. HISTORY AND PHYSICAL EXAMINATION: Well documented in the patient's chart. HOSPITAL COURSE: The patient was admitted on 05/14/2018, underwent total knee arthroplasty, tolerated the procedure well without complications. She was transferred to the PACU postoperatively and later to the orthopedic floor for further care. She was given Ancef for antibiotic prophylaxis, YARITZA stockings, SCDs, and aspirin for DVT prophylaxis. Hemoglobin, hematocrit, and vital signs were monitored during hospital stay and remained stable. She developed some mild postoperative anemia with hemoglobin down to 9.5 and did not require any blood transfusions. There were no complications. By postoperative day 2, she was tolerating a regular diet, pain was controlled with oral pain medicine. She was participating in physical therapy. Postop day 2, she was discharged to rehab facility. She was given printed discharge instructions including new prescriptions for extra strength Tylenol, aspirin, iron supplement and tramadol. Continue her home medicines. Continue physical therapy, weightbearing as tolerated, YARITZA stockings. Follow up in approximately 2 weeks postoperatively or sooner if there are any problems or concerns.
== END 2018-05-16 17:45 | DRG 470 ==
LOC: C.ACU 10:26 → C.3E 15:25 → ENRESERV 15:55
PROVIDERS: ADMIT Orthopaedic Surgery Sports Medicine; ATTEND Orthopaedic Surgery Sports Medicine
PROC: 0SRC0J9 Replacement of Right Knee Joint with Synthetic Substitute, Cemented, Open Approach (ICD-10-PCS; principal; 2018-05-14 12:45)
DX: M17.11 Unilateral primary osteoarthritis, right knee (principal); I51.9 Heart disease, unspecified; I10 Essential (primary) hypertension; J45.909 Unspecified asthma, uncomplicated; K21.9 Gastro-esophageal reflux disease without esophagitis; Z96.611 Presence of right artificial shoulder joint; Z96.612 Presence of left artificial shoulder joint; Z98.1 Arthrodesis status; D64.9 Anemia, unspecified

== ENCOUNTER 2020-10-14 13:18 | Inpatient (IN) ==
[2020-10-14] MEDS ORDERED: DEXTROSE 50% 50 ML SYRINGE IV ONE (14:09)
[2020-10-14] MEDS ORDERED: SODIUM CHLORIDE 0.9% 500 ML IV SCH (14:15)
--- NOTE | 2020-10-14 15:08 | Emergency Department Note ---
Impression & Plan Acute hypernatremia, Dementia, Acute dehydration, Acute renal failure, Adult failure to thrive ED Provider Note NAME: LUCIA STYLES AGE: 89 SEX: F ARRIVES VIA: Ambulance INFORMANT: Patient, ED PROVIDER(S): Cristofer Jenkins MD CHIEF COMPLAINT: weakness / confusion PLAN: Disposition: Admit MEDICAL DECISION MAKING: The patient is an 89-year-old woman with a past medical history of dementia and chronic debilitation history of lumbar stenosis with neurogenic claudication, arthritis who presents emergency department coming by her concern for worsening decline over the past couple of days where she is minimally interactiv e and minimally verbal from her baseline and not wanting to eat or drink and was recommended by her home staging specialist to come to the hospital. Of note, patient was seen by PCP in August and detention was recommended but the patient's wanted to keep her at home. They additionally offered referral to neurology but the declined. Patient's denies any known COVID-19 exposures, cough, congestion, fevers, chills, nausea, vomiting. Per EMS the patient was mildly hypoxic though details are unclear and was placed on O2 on arrival. Unable to obtain reliable oxygen saturation and so O2 was continued upon arrival. She is afebrile with stable vital signs. She cachectic appearing and appears clinically dry. She is moving all extremities equally with generalized weakness. She spontaneously awake and alert but is nonverbal though will follow simple commands. EKG without overt acute ischemia. Chest x-ray negative for acute process. WBC 4.4, nonspecific. H/H 15/49 which is appreciably increased from patient's prior range of values likely related to hemoconcentration. Platelets 85K decreased from prior range though approximate as she has had values in the low 100s. Sodium is 171 consistent with the patient's clinically dry appearance with free water deficit approximately 4 L. She has acute kidney injury with creatinine of 1.9 and BUN of 69 with BUN/creatinine > 30 consistent with prerenal etiology. Of note, the patient's serum glucose was 376 which is likely erroneous as this was drawn after she received an amp of D50 for low BSG in the 60s on arrival. Repeat BSG was 192 which is more accurate. Troponin 0.307 likely related to demand in the setting of the patient's profound volume depletion. CT head negative for acute process. Upon re-evaluation after IVF hydration and glucose patient did appear more alert and interactive. Would say her name upon request. agrees with plan for admission. Case was discussed with WILFREDO Ferguson hospitalist, who will evaluate the patient for admission. Triage Nursing notes reviewed and agree them. Additional history obtained from Prior medical records reviewed Vital Signs: reviewed and remarkable for no significant abnormalities Differential diagnosis: Infection, dehydration, metabolic abnormality, hypo/hyperglycemia, electrolyte disturbance, anemia, hypoxia, cardiac sources, intracerebral event, toxicologic, neurologic, as well as other pathologies. ER treatment provided: See below. Diagnostics interpreted by me: ECG: Normal sinus rhythm, 88 bpm, no ectopy, unspecific T wave abnormality with no overt ST elevation or depression Cardiac Monitoring: An order for continuous cardiac monitoring was placed and demonstrated Normal sinus rhythm, 88 bpm, no ectopy. Laboratory studies: See below Imaging studies: XR chest 1V portable CLINICAL HISTORY: Atypical chest pain COMPARISON STUDY: 02/10/2019 FINDINGS: The study is rotated. The heart is at the upper limits of normal in size. There is no failure. There is no focal pulmonary consolidation. There are no pleural effusions. There is no pneumothorax. There are bilateral shoulder arthroplasties.[ IMPRESSION: No active disease in the chest. CT head/brain wo con CLINICAL HISTORY: Acute change in mental status. Weakness. COMPARISON STUDY: 03/19/2020 TECHNIQUE: Axial CT of the brain is performed from the vertex to the skull base. IV contrast was not administered for this examination. A dose lowering technique was utilized adhering to the principles of ALARA. CT DOSE: 2006.90 mGycm FINDINGS: No intra or extra-axial mass lesions are visualized. There is no CT evidence of acute cortical infarction. There is no evidence of midline shift. There is no acute hemorrhage. No calvarial fractures are visualized. There are moderate white matter hypodensities likely on a small vessel basis. There is mild ventricular dilatation which is felt to be secondary to volume loss There is no evidence of acute sinusitis IMPRESSION: No acute intracranial findings ACT 112: Negative or not required by law. Consultation(s): Case was discussed with WILFREDO Ferguson hospitalist, who will evaluate the patient for admission. HPI: The patient is an 89-year-old woman with a past medical history of dementia and chronic debilitation history of lumbar stenosis with neurogenic claudication, arthritis who presents emergency department coming by her concern for worsening decline over the past couple of days where she is minimally interactive and minimally verbal from her baseline and not wanting to eat or drink and was recommended by her home staging specialist to come to the hospital. Of note, patient was seen by PCP in August and detention was recommended but the patient's wanted to keep her at home. They additionally offered referral to neurology but the declined. Patient's denies any known COVID-19 exposures, cough, congestion, fevers, chills, nausea, vomiting. Per EMS the patient was mildly hypoxic though details are unclear and was placed on O2 on arrival. We are unable to obtain reliable oxygen saturation and so O2 was continued. ROS: See above HPI for pertinent positives & negatives. A total of 10 systems reviewed and were otherwise negative. PAST MEDICAL HISTORY:See Below PAST SURGICAL HISTORY:See Below FAMILY HISTORY:See Below SOCIAL HISTORY:See Below HOME MEDICATIONS:See Below ALLERGIES:See Below VITALS:See Below PHYSICAL EXAMINATION: GENERAL: Awake, alert, nonverbal, fatigued cachectic-appearing, in no distress HENT: Normocephalic, atraumatic. Oropharynx with dry mucous membranes and otherwise unremarkable. . EYES: Normal conjunctiva. Sclera non-icteric. NECK: Supple. No nuchal rigidity. FROM. No JVD. RESPIRATORY: Clear to auscultation. CARDIAC: Regular rate, normal rhythm. Extremities warm and well perfused. Pulses equal. ABDOMEN: Soft, non-distended. No tenderness to palpation. No rebound or guarding. No masses. RECTAL: Deferred. MUSCULOSKELETAL: Chest examination reveals no tenderness. The back is symmetrical on inspection without obvious abnormality. There is no CVA tenderness to palpation. No joint edema. LOWER EXTREMITIES: Calves are equal size bilaterally and non-tender. No edema. No discoloration. NEURO: Spontaneously alert with eyes open following simple commands but nonverbal. Moving all extremities equally with generalized weakness without focal motor deficits. SKIN: No rash or jaundice noted. ED COURSE: Critical Care: I have personally spent greater than 45 minutes of critical care time in the direct management of this patient. This includes bedside care, interpretation of diagnostic studies, and testing, discussion with consultants, patient, and family members, and other required patient management activities. This 45 minutes is in excess of all separately billable procedures. Cristofer Jenkins MD Past Med/Surg History Medical History Acute gastric ulcer without hemorrhage or perforation Anemia Cerebral atherosclerosis Chronic osteoarthritis Chronic pain syndrome Cognitive impairment Difficulty swallowing Dyslipidemia Dyspnea on exertion Esophageal cancer CHEMO AND RADIATION Esophageal candidiasis Fatigue GERD (gastroesophageal reflux disease) Hyperlipidemia Hypertension Lumbar spinal stenosis Migraine Osteoarthritis Paroxysmal supraventricular tachycardia Severe sleep apnea Syncope LAST EPISODE A COUPLE MONTHS AGO Surgical History History of bilateral cataract extraction History of bowel resection History of cardiac cath 2013 @ [facility], no stents History of cholecystectomy History of colonoscopy History of lumbar spinal fusion History of open reduction and internal fixation (ORIF) procedure right wrist/arm---hardware in place History of open reduction and internal fixation (ORIF) procedure left wrist--hardware in place History of tooth extraction full upper and partial lower dentures History of total replacement of left shoulder joint History of total replacement of right shoulder joint History of total right knee replacement (TKR) History of wisdom tooth extraction Family History Mother Family history of diabetes mellitus Cerebral artery occlusion with cerebral infarction Sister Arthritis Breast cancer Other No family history of adverse response to anesthesia Denies family history of Ovarian cancer Prostate cancer Myocardial infarction Colorectal cancer Social History Smoking Status: Unknown if ever smoked Preferred Language: Khmer Communication Ability: Effective 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 Beliefs That Will Affect Care: None Current Living Situation: Spouse Current Living Situation Comment: lives at home with Feels Safe at Home: Yes Assistive Devices: Cane, Denture - Upper, Denture - Lower, Glasses and Walker Allergies Allergies Allergy/AdvReac Type Severity Reaction Status Date / Time No Known Allergies Allergy Verified 10/14/20 15:34 Home Meds Home Medications Medication Instructions Recorded Confirmed lidocaine 5 % topical patch 1 patch TOPICAL DAILY PRN ea 06/22/19 10/14/20 aspirin 81 mg PO DAILY PRN 01/06/20 10/14/20 lidocaine HCl [Aspercreme 1 applic TOPICAL QID PRN 01/06/20 10/14/20 (lidocaine HCl)] multivitamin 1 tab PO QAM 01/06/20 10/14/20 cephalexin 500 mg PO BID 10/14/20 10/14/20 donepezil [Aricept] 10 mg PO DAILY 10/14/20 10/14/20 esomeprazole magnesium 40 mg PO DAILY 10/14/20 10/14/20 ezetimibe 10 mg PO DAILY 10/14/20 10/14/20 metoprolol succinate 25 mg PO DAILY 10/14/20 10/14/20 quetiapine [Seroquel] 25 mg PO HS 10/14/20 10/14/20 Previous Rx's Medication Instructions Recorded polyethylene glycol 3350 17 gram 17 g PO DAILY PRN #100 ea 05/18/19 oral powder packet memantine 10 mg tablet 10 mg PO BID #60 tab 11/16/19 diclofenac sodium 1 % topical gel 2 g TOPICAL QID PRN #100 g 07/21/20 Results & Data (ED) Vital Signs Vital Signs - 24 hr 10/14/20 13:26 10/14/20 13:38 10/14/20 14:53 Temperature 34.3 C L 37.2 C Temperature Source Oral Rectal Pulse Rate 88 79 Pulse Rate [Left Finger] Respiratory Rate 20 20 Respiratory Pattern Regular Blood Pressure 131/90 Blood Pressure [Right Arm] Blood Pressure Mean 103 Blood Pressure Mean [Right Arm] Blood Pressure Position Lying Pulse Oximetry 96 98 Oxygen Delivery Method Room Air Nasal Cannula Oxygen Flow Rate 2 Sepsis Recent Fever Within 48 Hours No Sepsis New/Unexplained Change in Mental Status No Sepsis Action Taken by Nursing No Action Required 10/14/20 15:02 Temperature Temperature Source Pulse Rate Pulse Rate [Left Finger] 80 Respiratory Rate 20 Respiratory Pattern Blood Pressure Blood Pressure [Right Arm] 117/92 Blood Pressure Mean Blood Pressure Mean [Right Arm] 100 Blood Pressure Position Pulse Oximetry 98 Oxygen Delivery Method Nasal Cannula Oxygen Flow Rate 2 Sepsis Recent Fever Within 48 Hours Sepsis New/Unexplained Change in Mental Status Sepsis Action Taken by Nursing Laboratory Data Attestation: I reviewed the patient's lab results. Result diagrams: 10/14/20 14:47 10/14/20 14:47 Lab Results 10/14/20 10/14/20 10/14/20 Range/Units 13:27 13:29 14:03 WBC (4.8-10.8) K/uL RBC (4.2-5.4) M/uL Hgb (12.0-16.0) g/dL Hct (37-47) % MCV (80-100) fL MCH (25-34) pg MCHC (32-36) g/dL RDW Std Deviation (36.4-46.3) fL RDW Coeff of Sandy (11.5-14.5) % Plt Count (130-400) K/uL MPV (7.4-10.4) fL Immature Gran % (Auto) % Neut % (Auto) % Lymph % (Auto) % Mellette % (Auto) % Eos % (Auto) % Baso % (Auto) % Neut # (Auto) (1.4-6.5) K/uL Lymph # (Auto) (1.2-3.4) K/uL Mellette # (Auto) (0.11-0.59) K/uL Eos # (Auto) (0-0.5) K/uL Baso # (Auto) (0-0.2) K/uL Immature Gran # (Auto) (0.00-0.02) K/uL Platelet Estimate (Normal) Giant Platelets PT (9.0-12.0) Seconds INR (0.9-1.1) APTT (21.0-31.0) Seconds PTT Ratio Sodium (136-145) mmol/L Potassium (3.5-5.1) mmol/L Chloride (98-107) mmol/L Carbon Dioxide (21-32) mmol/L Anion Gap (3-11) BUN (7-18) mg/dl Creatinine (0.6-1.2) mg/dl Est Cr Clr Drug Dosing ml/min Est GFR ( Amer) Est GFR (Non-Af Amer) BUN/Creatinine Ratio (10-20) Glucose (70-99) mg/dl POC Glucose 66 L* 67 L* 93 (70-99) mg/dl Osmolality (280-300) mOsm/kg Calcium (8.5-10.1) mg/dl Phosphorus (2.5-4.9) mg/dl Magnesium (1.8-2.4) mg/dl Total Bilirubin (0.2-1) mg/dl Direct Bilirubin (0-0.2) mg/dl AST (15-37) U/L ALT (12-78) U/L Alkaline Phosphatase (45-117) U/L Total Creatine Kinase (26-192) U/L Troponin I (0-0.045) ng/ml Total Protein (6.4-8.2) gm/dl Albumin (3.4-5.0) gm/dl Globulin (2.5-4.0) gm/dl Albumin/Globulin Ratio (0.9-2) Lipase (73-393) U/L Beta-Hydroxybutyric Acd (0.2-2.81) mg/dl TSH (0.300-4.500) uIu/ml COVID-19 Eval Order Nasopharyn COVID-19 PCR Influenza Type A (PCR) Influenza Type B (PCR) 10/14/20 10/14/20 10/14/20 Range/Units 14:29 14:29 14:47 WBC 4.40 L (4.8-10.8) K/uL RBC 4.58 (4.2-5.4) M/uL Hgb 15.0 (12.0-16.0) g/dL Hct 49.0 H (37-47) % MCV 107.0 H (80-100) fL MCH 32.8 (25-34) pg MCHC 30.6 L (32-36) g/dL RDW Std Deviation 60.6 H (36.4-46.3) fL RDW Coeff of Sandy 15.6 H (11.5-14.5) % Plt Count 85 L (130-400) K/uL MPV 12.3 H (7.4-10.4) fL Immature Gran % (Auto) 1.1 % Neut % (Auto) 71.5 % Lymph % (Auto) 20.0 % Mellette % (Auto) 7.0 % Eos % (Auto) 0.2 % Baso % (Auto) 0.2 % Neut # (Auto) 3.14 (1.4-6.5) K/uL Lymph # (Auto) 0.88 L (1.2-3.4) K/uL Mellette # (Auto) 0.31 (0.11-0.59) K/uL Eos # (Auto) 0.01 (0-0.5) K/uL Baso # (Auto) 0.01 (0-0.2) K/uL Immature Gran # (Auto) 0.05 H (0.00-0.02) K/uL Platelet Estimate Decreased L (Normal) Giant Platelets 1+ PT (9.0-12.0) Seconds INR (0.9-1.1) APTT (21.0-31.0) Seconds PTT Ratio Sodium (136-145) mmol/L Potassium (3.5-5.1) mmol/L Chloride (98-107) mmol/L Carbon Dioxide (21-32) mmol/L Anion Gap (3-11) BUN (7-18) mg/dl Creatinine (0.6-1.2) mg/dl Est Cr Clr Drug Dosing ml/min Est GFR ( Amer) Est GFR (Non-Af Amer) BUN/Creatinine Ratio (10-20) Glucose (70-99) mg/dl POC Glucose (70-99) mg/dl Osmolality (280-300) mOsm/kg Calcium (8.5-10.1) mg/dl Phosphorus (2.5-4.9) mg/dl Magnesium (1.8-2.4) mg/dl Total Bilirubin (0.2-1) mg/dl Direct Bilirubin (0-0.2) mg/dl AST (15-37) U/L ALT (12-78) U/L Alkaline Phosphatase (45-117) U/L Total Creatine Kinase (26-192) U/L Troponin I (0-0.045) ng/ml Total Protein (6.4-8.2) gm/dl Albumin (3.4-5.0) gm/dl Globulin (2.5-4.0) gm/dl Albumin/Globulin Ratio (0.9-2) Lipase (73-393) U/L Beta-Hydroxybutyric Acd (0.2-2.81) mg/dl TSH (0.300-4.500) uIu/ml COVID-19 Eval Order Covid19 Sent to [facility] COVID-19 PCR Cancelled Influenza Type A (PCR) Cancelled Influenza Type B (PCR) Cancelled 10/14/20 10/14/20 10/14/20 Range/Units 14:47 14:47 14:47 WBC (4.8-10.8) K/uL RBC (4.2-5.4) M/uL Hgb (12.0-16.0) g/dL Hct (37-47) % MCV (80-100) fL MCH (25-34) pg MCHC (32-36) g/dL RDW Std Deviation (36.4-46.3) fL RDW Coeff of Sandy (11.5-14.5) % Plt Count (130-400) K/uL MPV (7.4-10.4) fL Immature Gran % (Auto) % Neut % (Auto) % Lymph % (Auto) % Mellette % (Auto) % Eos % (Auto) % Baso % (Auto) % Neut # (Auto) (1.4-6.5) K/uL Lymph # (Auto) (1.2-3.4) K/uL Mellette # (Auto) (0.11-0.59) K/uL Eos # (Auto) (0-0.5) K/uL Baso # (Auto) (0-0.2) K/uL Immature Gran # (Auto) (0.00-0.02) K/uL Platelet Estimate (Normal) Giant Platelets PT 12.4 H (9.0-12.0) Seconds INR 1.2 H (0.9-1.1) APTT 23.2 (21.0-31.0) Seconds PTT Ratio 0.8 Sodium 171 H* (136-145) mmol/L Potassium 3.9 (3.5-5.1) mmol/L Chloride 141 H (98-107) mmol/L Carbon Dioxide 27 (21-32) mmol/L Anion Gap 3.0 (3-11) BUN 69 H (7-18) mg/dl Creatinine 1.93 H (0.6-1.2) mg/dl Est Cr Clr Drug Dosing 12.9 ml/min Est GFR ( Amer) 26.3 Est GFR (Non-Af Amer) 22.7 BUN/Creatinine Ratio 36.0 H (10-20) Glucose 376 H* (70-99) mg/dl POC Glucose (70-99) mg/dl Osmolality 398 H* (280-300) mOsm/kg Calcium 8.7 (8.5-10.1) mg/dl Phosphorus 3.2 (2.5-4.9) mg/dl Magnesium 3.1 H (1.8-2.4) mg/dl Total Bilirubin 1.1 H (0.2-1) mg/dl Direct Bilirubin 0.4 H (0-0.2) mg/dl AST 85 H (15-37) U/L ALT 116 H (12-78) U/L Alkaline Phosphatase 71 (45-117) U/L Total Creatine Kinase 208 H (26-192) U/L Troponin I 0.307 H* (0-0.045) ng/ml Total Protein 6.7 (6.4-8.2) gm/dl Albumin 3.1 L (3.4-5.0) gm/dl Globulin 3.6 (2.5-4.0) gm/dl Albumin/Globulin Ratio 0.9 (0.9-2) Lipase 259 (73-393) U/L Beta-Hydroxybutyric Acd 1.16 (0.2-2.81) mg/dl TSH 1.290 (0.300-4.500) uIu/ml COVID-19 Eval Order Nasopharyn COVID-19 PCR Influenza Type A (PCR) Influenza Type B (PCR) 10/14/20 Range/Units 16:28 WBC (4.8-10.8) K/uL RBC (4.2-5.4) M/uL Hgb (12.0-16.0) g/dL Hct (37-47) % MCV (80-100) fL MCH (25-34) pg MCHC (32-36) g/dL RDW Std Deviation (36.4-46.3) fL RDW Coeff of Snady (11.5-14.5) % Plt Count (130-400) K/uL MPV (7.4-10.4) fL Immature Gran % (Auto) % Neut % (Auto) % Lymph % (Auto) % Mellette % (Auto) % Eos % (Auto) % Baso % (Auto) % Neut # (Auto) (1.4-6.5) K/uL Lymph # (Auto) (1.2-3.4) K/uL Mellette # (Auto) (0.11-0.59) K/uL Eos # (Auto) (0-0.5) K/uL Baso # (Auto) (0-0.2) K/uL Immature Gran # (Auto) (0.00-0.02) K/uL Platelet Estimate (Normal) Giant Platelets PT (9.0-12.0) Seconds INR (0.9-1.1) APTT (21.0-31.0) Seconds PTT Ratio Sodium (136-145) mmol/L Potassium (3.5-5.1) mmol/L Chloride (98-107) mmol/L Carbon Dioxide (21-32) mmol/L Anion Gap (3-11) BUN (7-18) mg/dl Creatinine (0.6-1.2) mg/dl Est Cr Clr Drug Dosing ml/min Est GFR ( Amer) Est GFR (Non-Af Amer) BUN/Creatinine Ratio (10-20) Glucose (70-99) mg/dl POC Glucose 192 H (70-99) mg/dl Osmolality (280-300) mOsm/kg Calcium (8.5-10.1) mg/dl Phosphorus (2.5-4.9) mg/dl Magnesium (1.8-2.4) mg/dl Total Bilirubin (0.2-1) mg/dl Direct Bilirubin (0-0.2) mg/dl AST (15-37) U/L ALT (12-78) U/L Alkaline Phosphatase (45-117) U/L Total Creatine Kinase (26-192) U/L Troponin I (0-0.045) ng/ml Total Protein (6.4-8.2) gm/dl Albumin (3.4-5.0) gm/dl Globulin (2.5-4.0) gm/dl Albumin/Globulin Ratio (0.9-2) Lipase (73-393) U/L Beta-Hydroxybutyric Acd (0.2-2.81) mg/dl TSH (0.300-4.500) uIu/ml COVID-19 Eval Order Nasopharyn COVID-19 PCR Influenza Type A (PCR) Influenza Type B (PCR) Administered Medications Heparin Sodium (Porcine) (Heparin Sod 5,000 Unit/0.5 Ml Vial) 5,000 units SQ BID LUIS Stop: 11/13/20 20:59 Last Admin: 10/14/20 21:40 Dose: 5,000 units Documented by: [id number] Dextrose (D5w) 1,000 mls @ 125 mls/hr IV .Q8H LUIS Stop: 11/13/20 16:59 Last Admin: 10/14/20 21:30 Dose: 125 mls/hr Documented by: [id number] Discontinued Medications Dextrose (Dextrose 50% 50 Ml Syringe) 50 ml IV NOW ONE Stop: 10/14/20 14:10 Last Admin: 10/14/20 14:22 Dose: 50 ml Documented by: [id number] Sodium Chloride (Nss) 500 mls @ 999 mls/hr IV .Q31M LUIS Stop: 10/14/20 14:45 Last Infusion: 10/14/20 14:51 Dose: 0 mls/hr Documented by: [id number] Admin: 10/14/20 14:23 Dose: 999 mls/hr Documented by: [id number] Discharge Plan Visit Data Chief Complaint: Altered Mental Status ED Provider: Cristofer Jenkins Discharge Problem: Acute hypernatremia, Dementia, Acute dehydration, Acute renal failure, Adult failure to thrive Patient Disposition: Admitted As Inpatient Discharge Instructions Interventions: ED Discharge Assessment Last Done: 10/14/20 20:12 Discharge Problem: Dementia Qualifiers: Dementia type: unspecified type Dementia behavioral disturbance: with behavioral disturbance Qualified Code(s): F03.91 - Unspecified dementia with behavioral disturbance Acute renal failure Qualifiers: Acute renal failure type: unspecified Qualified Code(s): N17.9 - Acute kidney failure, unspecified
--- NOTE | 2020-10-14 15:19 | XRay Report ---
XR chest 1V portable CLINICAL HISTORY: Atypical chest pain COMPARISON STUDY: 02/10/2019 FINDINGS: The study is rotated. The heart is at the upper limits of normal in size. There is no failu re. There is no focal pulmonary consolidation. There are no pleural effusions. There is no pneumothor ax. There are bilateral shoulder arthroplasties.[ IMPRESSION: No active disease in the chest. ACT 112: Negative or not required by law. Electronically signed by: John Welsh M.D. 10/14/2020 3:18 PM
[2020-10-14 15:26] LABS: INR 1.2 (0.9-1.1); Partial Thromboplastin Ratio 0.8; Partial Thromboplastin Time 23.2 Seconds (21.0-31.0); Prothrombin Time 12.4 Seconds (9.0-12.0)
[2020-10-14 15:33] LABS: Mean Corpuscular Hemoglobin 32.8 pg (25-34); Mean Corpuscular Hgb Conc 30.6 g/dL (32-36); RDW Coefficient of Variation 15.6 % (11.5-14.5); RDW Standard Deviation 60.6 fL (36.4-46.3); Red Blood Count 4.58 M/uL (4.2-5.4)
[2020-10-14 15:35] LABS: Mean Platelet Volume 12.3 fL (7.4-10.4); Platelet Count 85 K/uL (130-400)
[2020-10-14 15:36] LABS: Basophils # (auto) 0.01 K/uL (0-0.2); Basophils % (auto) 0.2 %; Eosinophils # (auto) 0.01 K/uL (0-0.5); Eosinophils % (auto) 0.2 %; Giant Platelets 1+; Immature Granulocytes # (auto) 0.05 K/uL (0.00-0.02); Immature Granulocytes % (auto) 1.1 %; Lymphocytes # (auto) 0.88 K/uL (1.2-3.4); Monocytes # (auto) 0.31 K/uL (0.11-0.59); Neutrophils # (auto) 3.14 K/uL (1.4-6.5); Neutrophils % (auto) 71.5 %; Platelet Estimate Decreased (Normal)
[2020-10-14 15:38] LABS: Albumin Globulin Ratio 0.9 (0.9-2); Albumin Level 3.1 gm/dl (3.4-5.0); Bilirubin Direct 0.4 mg/dl (0-0.2); Bilirubin,Total 1.1 mg/dl (0.2-1); Calcium 8.7 mg/dl (8.5-10.1); Creatinine Clr Calc Pharmacy 12.9 ml/min; Est GFR (African American) 26.3; Est GFR (Non-African American) 22.7; Globulin 3.6 gm/dl (2.5-4.0); Magnesium 3.1 mg/dl (1.8-2.4); Phosphorus 3.2 mg/dl (2.5-4.9); Potassium 3.9 mmol/L (3.5-5.1); Thyroid Stimulating Hormone 1.29 uIu/ml (0.300-4.500); Total Protein 6.7 gm/dl (6.4-8.2); Troponin I 0.307 ng/ml (0-0.045)
[2020-10-14 15:55] LABS: Beta-Hydroxybutyrate 1.16 mg/dl (0.2-2.81)
--- NOTE | 2020-10-14 16:25 | CT Scan Report ---
CT head/brain wo con CLINICAL HISTORY: Acute change in mental status. Weakness. COMPARISON STUDY: 03/19/2020 TECHNIQUE: Axial CT of the brain is performed from the vertex to the skull base. IV contrast was not administered for this examination. A dose lowering technique was utilized adhering to the principles of ALARA. CT DOSE: 2006.90 mGycm FINDINGS: No intra or extra-axial mass lesions are visualized. There is no CT evidence of acute cortical infarc tion. There is no evidence of midline shift. There is no acute hemorrhage. No calvarial fractures ar e visualized. There are moderate white matter hypodensities likely on a small vessel basis. There is mild ventricular dilatation which is felt to be secondary to volume loss There is no evidence of acute sinusitis IMPRESSION: No acute intracranial findings ACT 112: Negative or not required by law. Electronically signed by: John Welsh M.D. 10/14/2020 4:24 PM
--- NOTE | 2020-10-14 17:57 | History & Physical Report ---
Date of Service October 14, 2020 Assessment & Plan (1) Acute hypernatremia: New since March but unclear how acute. Secondary to dehydration and not eating or drinking. D5W @ 125 ml/hr, repeat BMP in AM. (2) Acute metabolic encephalopathy: Secondary to hypernatremia as above but underlying dementia therefore unclear if she'll ever be able to eat or drink again. (3) Esophageal cancer: Is not eating or drinking after hypernatremia resolves consider GI consult. EGD in May with severe stenosis that was dilated therefore possible recurred. (4) Dementia: Hold donepezil, memantine and seroquel due to altered mental state. (5) Acute dehydration: IV fluids as above. Secondary to not eating and drinking due to underl daja dementia versus esophageal stenosis/cancer. (6) Acute renal failure: Suspect prerenal due to acute dehydration. Will monitor BMP with replacing IV fluids. (7) Ambulatory dysfunction: Most recently wheelchair-bound since August secondary to spinal stenosis and severe osteoarthritis. (8) Severe sleep apnea: I am unclear when this diagnosis was made. No sleep study in EHR. Unclear if obstructive versus more likely central. reports not on CPAP at home. (9) Severe protein-calorie malnutrition: Will likely need dietitian referral following correction of hyponatremia. (10) Adult failure to thrive: PT/OT eval's once hypernatremia resolves. Suspect will need placement if she comes out of hospital although her has been very reluctant with this in the past. (11) DVT prophylaxis: Heparin 5000 units SQ twice daily Admission and Anticipated Discharge Date Admission Date: October 14, 2020 History of Present Illness Primary Care Provider: Lizandro Austin MD Reshma Ramosgordocorry is an 89-year-old female who presents to the ER with altered mental status. Unable to take history from the patient due to altered mental state therefore history taken from at bedside and electronic health record. reports rapid the progressive decline over the last month to the point of her not eating or drinking anything the last 2 days. He reports 2 months ago she was having no mobility or memory issues. This is clearly different from her PCP notes in August recommending assisted living due to her dementia, diagnosis of Alzheimer's disease on Namenda and donepezil with noted slow, progressive neurological decline with worsening reversal of days and nights and starting to have some aggression at night therefore started on Seroquel. She was wheelchair bound at that time and remained so up until the last 2 days per her when now she is bedbound. She also has a significant history of esophageal cancer treated with chemotherapy and most recently had severe esophageal stenosis dilated in May. In the ER labs were concerning for sodium of 171. I discussed this with her that we may be able to help with improvement with IV hydration however with her underlying progressive dementia it is likely that this will recur again unless she was artificially hydrated. We also discussed likelihood that this fluid could end up on her lungs causing respiratory distress in the light of her severe malnutrition. We discussed the likely futility of resuscitation in the event of a cardiac arrest and the potential harm chest compressions could cause - he wishes to have all available treatments at this time. Allergies Allergy/AdvReac Type Severity Reaction Status Date / Time No Known Allergies Allergy Verified 10/14/20 15:34 Home Medications Medication Instructions Recorded Confirmed Type polyethylene glycol 3350 17 gram 17 g PO DAILY PRN #100 ea 05/18/19 10/14/20 Rx oral powder packet lidocaine 5 % topical patch 1 patch TOPICAL DAILY PRN ea 06/22/19 10/14/20 History memantine 10 mg tablet 10 mg PO BID #60 tab 11/16/19 10/14/20 Rx aspirin 81 mg PO DAILY PRN 01/06/20 10/14/20 History lidocaine HCl [Aspercreme 1 applic TOPICAL QID PRN 01/06/20 10/14/20 History (lidocaine HCl)] multivitamin 1 tab PO QAM 01/06/20 10/14/20 History diclofenac sodium 1 % topical gel 2 g TOPICAL QID PRN #100 g 07/21/20 10/14/20 Rx cephalexin 500 mg PO BID 10/14/20 10/14/20 History donepezil [Aricept] 10 mg PO DAILY 10/14/20 10/14/20 History esomeprazole magnesium 40 mg PO DAILY 10/14/20 10/14/20 History ezetimibe 10 mg PO DAILY 10/14/20 10/14/20 History metoprolol succinate 25 mg PO DAILY 10/14/20 10/14/20 History quetiapine [Seroquel] 25 mg PO HS 10/14/20 10/14/20 History Past Med/Surg History Medical History (Updated 10/15/20 @ 16:48 by Beltran Chapin MD) Acute gastric ulcer without hemorrhage or perforation Anemia Cerebral atherosclerosis Chronic osteoarthritis Chronic pain syndrome Cognitive impairment Difficulty swallowing Dyslipidemia Dyspnea on exertion Esophageal cancer CHEMO AND RADIATION Esophageal candidiasis Fatigue GERD (gastroesophageal reflux disease) Hyperlipidemia Hypertension Lumbar spinal stenosis Migraine Osteoarthritis Paroxysmal supraventricular tachycardia Severe sleep apnea Syncope LAST EPISODE A COUPLE MONTHS AGO Surgical History History of bilateral cataract extraction History of bowel resection History of cardiac cath 2013 @ [facility], no stents History of cholecystectomy History of colonoscopy History of lumbar spinal fusion History of open reduction and internal fixation (ORIF) procedure right wrist/arm---hardware in place History of open reduction and internal fixation (ORIF) procedure left wrist--hardware in place History of tooth extraction full upper and partial lower dentures History of total replacement of left shoulder joint History of total replacement of right shoulder joint History of total right knee replacement (TKR) History of wisdom tooth extraction Family History Mother Family history of diabetes mellitus Cerebral artery occlusion with cerebral infarction Sister Arthritis Breast cancer Other No family history of adverse response to anesthesia Denies family history of Ovarian cancer Prostate cancer Myocardial infarction Colorectal cancer Social History Smoking Status: Unknown if ever smoked Preferred Language: Sinhala Communication Ability: Effective Project Control Officer Required: No Beliefs That Will Affect Care: None Current Living Situation: Spouse Current Living Situation Comment: lives at home with Feels Safe at Home: Yes Assistive Devices: Cane, Denture - Upper, Denture - Lower, Glasses and Walker Review of Systems Review of Systems: Unobtainable due to cognitive status Physical Exam Constitutional: + cachectic and + frail appearing; no acute distress Eyes: + anicteric sclerae; normal pupil size ENMT: Mouth: + dry oral mucous membranes Neck: trachea midline, no thyromegaly Respiratory: normal respiratory effort, lungs clear to auscultation (Reported occasional apnea by nursing staff but not witnessed by this provid) Cardiovascular: Rate/Rhythm: regular rate and regular rhythm Heart Sounds: no murmur Extremities: normal capillary refill; no calf tenderness and no pedal edema Gastrointestinal (Abdomen): Inspection/Auscultation: + abdomen distended and + hypoactive bowel sounds Percussion/Palpation: abdomen soft; abdomen nontender, no guarding and abdomen not rigid Musculoskeletal: Head/Neck/Chest: normocephalic and head atraumatic Skin: no rashes, warm and dry Neurologic: moves all extremities, awake and + confused; no focal motor deficits (Unable to assess due to altered mental status) Psychiatric: Orientation: alert; + not oriented x 3 Apperance: + disheveled Eye Contact: + poor eye contact Results & Data Results & Data ([facility]) Vital Signs (Past 12 Hours) Vital Signs Temp Pulse Pulse Resp BP BP Pulse Ox 10/14/20 15:02 80 20 117/92 98 10/14/20 14:53 79 20 98 10/14/20 13:38 37.2 C 10/14/20 13:26 34.3 C L 88 20 131/[address] head/brain wo con IMPRESSION: No acute intracranial findings XR chest 1V portable IMPRESSION: No active disease in the chest. Medications Administered ER medications given: NSS 500 mL bolus ECG Indication: altered mental status Rate (beats per minute): 88 Rhythm: normal sinus Findings: + other (Nonspecific T wave abnormalities in anterior/inferior/lateral leads) Comparison ECG Date: from (March 20, 2020) Change: the following changes noted (T wave flattening above is new) Code Status & VTE Plan Code Status Full as discussed with her VTE Prophylaxis Plan VTE Prophylaxis will be ordered: Yes PG Care Time/CCT Total # of Minutes Spent Total Time Spent with Patient: Total time spent is greater than 50% in coordination of care (as documented) at patient's floor/unit and/or counseling patient: Coding Level of Care Code 25770 Initial Inpt Care Lvl 3 Diagnoses Acute hypernatremia E87.0 Acute metabolic encephalopathy G93.41 Esophageal cancer C15.4 Malignant neoplasm of esophagus location: middle third Dementia F03.91 Dementia behavioral disturbance: with behavioral disturbance Dementia type: unspecified type Acute dehydration E86.0 Acute renal failure N17.9 Acute renal failure type: unspecified Ambulatory dysfunction R26.2 Severe sleep apnea G47.30 Severe protein-calorie malnutrition E43 Adult failure to thrive R62.7 DVT prophylaxis Z29.9 (1) Esophageal cancer 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
[2020-10-14 18:46] LABS: Influenza A virus by PCR Negative (Neg); Influenza B virus by PCR Negative (Neg); RSV by PCR Negative (Neg); SARS CoV2 RNA(COVID-19) InHosp NEGATIVE (Negative)
[2020-10-14] MEDS ORDERED: DICLOFENAC SOD 1% GEL 100 GM TUBE EXT PRN (20:53)
[2020-10-14] MEDS: DEXTROSE 5% 1,000 ML IV SCH (21:30)
[2020-10-14] MEDS: HEPARIN SOD 5,000 UNIT/0.5 ML VIAL SQ SCH (21:40)
[2020-10-15] MEDS: DEXTROSE 5% 1,000 ML IV SCH ×4 (04:41→16:50)
[2020-10-15 06:47] LABS: Hematocrit (blood only) 47.5 % (37-47); Hemoglobin 14.2 g/dL (12.0-16.0); Mean Corpuscular Hemoglobin 32.4 pg (25-34); Mean Corpuscular Hgb Conc 29.9 g/dL (32-36); Mean Corpuscular Volume 108.4 fL (80-100); Platelet Count 78 K/uL (130-400); Red Blood Count 4.38 M/uL (4.2-5.4); White Blood Count 4.51 K/uL (4.8-10.8)
[2020-10-15 06:55] LABS: Eosinophils # (auto) 0.04 K/uL (0-0.5); Eosinophils % (auto) 0.9 %; Immature Granulocytes # (auto) 0.02 K/uL (0.00-0.02); Immature Granulocytes % (auto) 0.4 %; Lymphocytes # (auto) 1.02 K/uL (1.2-3.4); Lymphocytes % (auto) 22.6 %; Monocytes # (auto) 0.36 K/uL (0.11-0.59); Neutrophils # (auto) 3.07 K/uL (1.4-6.5); Neutrophils % (auto) 68.1 %; Platelet Estimate Decreased (Normal)
[2020-10-15 07:15] LABS: Albumin Globulin Ratio 0.9 (0.9-2); Albumin Level 3.2 gm/dl (3.4-5.0); BUN Creatinine Ratio 41.2 (10-20); Bilirubin,Total 1.2 mg/dl (0.2-1); Calcium 8.4 mg/dl (8.5-10.1); Creatinine Clr Calc Pharmacy 19.7 ml/min; Est GFR (African American) 40.2; Est GFR (Non-African American) 34.7; Globulin 3.5 gm/dl (2.5-4.0); Total Protein 6.7 gm/dl (6.4-8.2); Troponin I 0.257 ng/ml (0-0.045)
[2020-10-15] MEDS: HEPARIN SOD 5,000 UNIT/0.5 ML VIAL SQ SCH ×2 (08:04→21:19)
[2020-10-15] MEDS: METOPROLOL SUCC 25MG EXT REL TAB PO SCH (08:05)
[2020-10-15] MEDS: PANTOprazole 40 MG TAB PO SCH (08:05)
[2020-10-15] MEDS: MULTIVITAMIN TAB PO SCH (08:05)
[2020-10-15] MEDS: EZETIMIBE 10 MG TABLET PO SCH (08:05)
--- NOTE | 2020-10-15 08:25 | Hospitalist Progress Note ---
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 Secondary to not eating and drinking due to underlying dementia versus esophageal stenosis/cancer. more hydrated today but still hypovolemic, continue D5W 80cc/hr (6) Acute renal failure: Suspect prerenal due to acute dehydration Cr 1.9 on admission, improved to 1.26 this evening making urine, continue IV fluids and check BMP in the morning (7) Adult failure to thrive: poor nutrition, weak, confused due to dementia, will only continue to get worse (8) Ambulatory dysfunction: Most recently wheelchair-bound since August secondary to spinal stenosis and severe osteoarthritis family has some caregivers to help , working on getting more help at home (9) Severe protein-calorie malnutrition: Will likely need dietitian referral following correction of hyponatremia. (10) DVT prophylaxis: Heparin 5000 units SQ twice daily (11) Goals of care, counseling/discussion: 20 minute talk with and two patient's sons in the [facility] discussed poor prognosis, recommended hospice they would like hospice at home will talk further tomorrow about code status consult palliative care Admission and Anticipated Discharge Date Admission Date: October 14, 2020 Subjective Na improving with D5W, down to 165 patient is confused, eating a drinking a little but not great long talk with the patient's and two sons in the [facility] the patient has been deteriorating for a few months, she has been in bed or a wheelchair the has a few hours of help several days a week but probably needs more help she has not fallen recently we had a fabio conversation about her getting worse, that we can hydrate her with IV fluids but then she will get dehydrated again I offered hospice as a realistic goal to take her home family places a lot of value with her staying at home because they know they will be isolated from her at a SNF they believe they have enough resources, especially because she does not walk asked them to talk about DNR status as she is a full code asked if she has a living will discussing code status, artificial hydration and nutrition even if he cannot find it, they need to talk as a family to determine what she would want I told them that CPR, intubation would not benefit her, would not improve quality of life they agree with palliative care consultation on Saturday they know that CM can offer assistance in getting her set up with home hospice Review of Systems Review of Systems: Unobtainable due to cognitive status (confused, dementia) Physical Exam Constitutional: well developed, + thin, + frail appearing and comfortable; no acute distress Neck: trachea midline, no thyromegaly Respiratory: normal respiratory effort, lungs clear to auscultation Cardiovascular: RRR, no murmur, no edema Gastrointestinal (Abdomen): normal bowel sounds, soft, nontender, no hepatosplenomegaly Musculoskeletal: Head/Neck/Chest: normocephalic and head atraumatic Extremities: + abnormal strength (generalized weakness) and + muscle atrophy Skin: no rashes, warm and dry Neurologic: CN's II-XI intact bilaterally, awake and + confused; no focal motor deficits Psychiatric: Orientation: alert and oriented to person; + not oriented to place and + not oriented to time Results & Data Results & Data ([facility]) Vital Signs (Past 12 Hours) Vital Signs Temp Pulse Resp BP BP Pulse Ox 10/15/20 08:00 36.4 C L 75 18 124/86 100 10/15/20 03:00 36.5 C 72 20 129/70 100 10/15/20 00:48 98 10/15/20 00:12 93 10/15/20 00:00 77 L 10/14/20 23:41 36.8 C 59 L 18 131/71 91 10/14/20 20:30 36.5 C 89 16 114/77 100 Laboratory Results Laboratory Results - last 24 hr 10/14/20 10/14/20 10/14/20 13:27 13:29 14:03 WBC RBC Hgb Hct MCV MCH MCHC RDW Std Deviation RDW Coeff of Sandy Plt Count MPV Immature Gran % (Auto) Neut % (Auto) Lymph % (Auto) Mitchell % (Auto) Eos % (Auto) Baso % (Auto) Neut # (Auto) Lymph # (Auto) Mitchell # (Auto) Eos # (Auto) Baso # (Auto) Immature Gran # (Auto) Platelet Estimate Giant Platelets PT INR APTT PTT Ratio Sodium Potassium Chloride Carbon Dioxide Anion Gap BUN Creatinine Est Cr Clr Drug Dosing Est GFR ( Amer) Est GFR (Non-Af Amer) BUN/Creatinine Ratio Glucose POC Glucose 66 L* 67 L* 93 Osmolality Calcium Phosphorus Magnesium Total Bilirubin Direct Bilirubin AST ALT Alkaline Phosphatase Total Creatine Kinase Troponin I Total Protein Albumin Globulin Albumin/Globulin Ratio Lipase Beta-Hydroxybutyric Acd TSH Urine Color Urine Appearance Urine pH Ur Specific [place] Urine Protein Urine Glucose (UA) Urine Ketones Urine Blood Urine Nitrite Urine Bilirubin Urine Urobilinogen Ur Leukocyte Esterase Urine WBC (Auto) Urine RBC (Auto) U Hyaline Cast (Auto) U Epithel Cells (Auto) Urine Bacteria (Auto) Ur Renal Epithelial Cell Urine Crystals Calcium Oxalate Crystal Uric Acid Crystals Triple Phos Crystals Other Crystals Amorphous Sediment Granular Casts Waxy Casts RBC Casts WBC Casts Other Casts Urine Mucus Urine Other Urine Trichomonas Urine Yeast Urine Sperm Ur Oval Fat Bodies COVID-19 Eval Order SARS-CoV-2 (PCR) Nasopharyn COVID-19 PCR Influenza Type A (PCR) Influenza Type B (PCR) RSV (RT-PCR) 10/14/20 10/14/20 10/14/20 14:29 14:29 14:47 WBC 4.40 L RBC 4.58 Hgb 15.0 Hct 49.0 H MCV 107.0 H MCH 32.8 MCHC 30.6 L RDW Std Deviation 60.6 H RDW Coeff of Sandy 15.6 H Plt Count 85 L MPV 12.3 H Immature Gran % (Auto) 1.1 Neut % (Auto) 71.5 Lymph % (Auto) 20.0 Mitchell % (Auto) 7.0 Eos % (Auto) 0.2 Baso % (Auto) 0.2 Neut # (Auto) 3.14 Lymph # (Auto) 0.88 L Mitchell # (Auto) 0.31 Eos # (Auto) 0.01 Baso # (Auto) 0.01 Immature Gran # (Auto) 0.05 H Platelet Estimate Decreased L Giant Platelets 1+ PT INR APTT PTT Ratio Sodium Potassium Chloride Carbon Dioxide Anion Gap BUN Creatinine Est Cr Clr Drug Dosing Est GFR ( Amer) Est GFR (Non-Af Amer) BUN/Creatinine Ratio Glucose POC Glucose Osmolality Calcium Phosphorus Magnesium Total Bilirubin Direct Bilirubin AST ALT Alkaline Phosphatase Total Creatine Kinase Troponin I Total Protein Albumin Globulin Albumin/Globulin Ratio Lipase Beta-Hydroxybutyric Acd TSH Urine Color Urine Appearance Urine pH Ur Specific [place] Urine Protein Urine Glucose (UA) Urine Ketones Urine Blood Urine Nitrite Urine Bilirubin Urine Urobilinogen Ur Leukocyte Esterase Urine WBC (Auto) Urine RBC (Auto) U Hyaline Cast (Auto) U Epithel Cells (Auto) Urine Bacteria (Auto) Ur Renal Epithelial Cell Urine Crystals Calcium Oxalate Crystal Uric Acid Crystals Triple Phos Crystals Other Crystals Amorphous Sediment Granular Casts Waxy Casts RBC Casts WBC Casts Other Casts Urine Mucus Urine Other Urine Trichomonas Urine Yeast Urine Sperm Ur Oval Fat Bodies COVID-19 Eval Order Covid19 Sent to [facility] SARS-CoV-2 (PCR) Nasopharyn COVID-19 PCR Cancelled Influenza Type A (PCR) Cancelled Influenza Type B (PCR) Cancelled RSV (RT-PCR) 10/14/20 10/14/20 10/14/20 14:47 14:47 14:47 WBC RBC Hgb Hct MCV MCH MCHC RDW Std Deviation RDW Coeff of Sandy Plt Count MPV Immature Gran % (Auto) Neut % (Auto) Lymph % (Auto) Mitchell % (Auto) Eos % (Auto) Baso % (Auto) Neut # (Auto) Lymph # (Auto) Mitchell # (Auto) Eos # (Auto) Baso # (Auto) Immature Gran # (Auto) Platelet Estimate Giant Platelets PT 12.4 H INR 1.2 H APTT 23.2 PTT Ratio 0.8 Sodium 171 H* Potassium 3.9 Chloride 141 H Carbon Dioxide 27 Anion Gap 3.0 BUN 69 H Creatinine 1.93 H Est Cr Clr Drug Dosing 12.9 Est GFR ( Amer) 26.3 Est GFR (Non-Af Amer) 22.7 BUN/Creatinine Ratio 36.0 H Glucose 376 H* POC Glucose Osmolality 398 H* Calcium 8.7 Phosphorus 3.2 Magnesium 3.1 H Total Bilirubin 1.1 H Direct Bilirubin 0.4 H AST 85 H ALT 116 H Alkaline Phosphatase 71 Total Creatine Kinase 208 H Troponin I 0.307 H* Total Protein 6.7 Albumin 3.1 L Globulin 3.6 Albumin/Globulin Ratio 0.9 Lipase 259 Beta-Hydroxybutyric Acd 1.16 TSH 1.290 Urine Color Urine Appearance Urine pH Ur Specific [place] Urine Protein Urine Glucose (UA) Urine Ketones Urine Blood Urine Nitrite Urine Bilirubin Urine Urobilinogen Ur Leukocyte Esterase Urine WBC (Auto) Urine RBC (Auto) U Hyaline Cast (Auto) U Epithel Cells (Auto) Urine Bacteria (Auto) Ur Renal Epithelial Cell Urine Crystals Calcium Oxalate Crystal Uric Acid Crystals Triple Phos Crystals Other Crystals Amorphous Sediment Granular Casts Waxy Casts RBC Casts WBC Casts Other Casts Urine Mucus Urine Other Urine Trichomonas Urine Yeast Urine Sperm Ur Oval Fat Bodies COVID-19 Eval Order SARS-CoV-2 (PCR) Nasopharyn COVID-19 PCR Influenza Type A (PCR) Influenza Type B (PCR) RSV (RT-PCR) 10/14/20 10/14/20 10/14/20 16:28 18:42 21:23 WBC RBC Hgb Hct MCV MCH MCHC RDW Std Deviation RDW Coeff of Sandy Plt Count MPV Immature Gran % (Auto) Neut % (Auto) Lymph % (Auto) Mitchell % (Auto) Eos % (Auto) Baso % (Auto) Neut # (Auto) Lymph # (Auto) Mitchell # (Auto) Eos # (Auto) Baso # (Auto) Immature Gran # (Auto) Platelet Estimate Giant Platelets PT INR APTT PTT Ratio Sodium Potassium Chloride Carbon Dioxide Anion Gap BUN Creatinine Est Cr Clr Drug Dosing Est GFR ( Amer) Est GFR (Non-Af Amer) BUN/Creatinine Ratio Glucose POC Glucose 192 H Osmolality Calcium Phosphorus Magnesium Total Bilirubin Direct Bilirubin AST ALT Alkaline Phosphatase Total Creatine Kinase Troponin I 0.316 H* Total Protein Albumin Globulin Albumin/Globulin Ratio Lipase Beta-Hydroxybutyric Acd TSH Urine Color Cancelled Urine Appearance Cancelled Urine pH Cancelled Ur Specific [place] Cancelled Urine Protein Cancelled Urine Glucose (UA) Cancelled Urine Ketones Cancelled Urine Blood Cancelled Urine Nitrite Cancelled Urine Bilirubin Cancelled Urine Urobilinogen Cancelled Ur Leukocyte Esterase Cancelled Urine WBC (Auto) Cancelled Urine RBC (Auto) Cancelled U Hyaline Cast (Auto) Cancelled U Epithel Cells (Auto) Cancelled Urine Bacteria (Auto) Cancelled Ur Renal Epithelial Cell Cancelled Urine Crystals Cancelled Calcium Oxalate Crystal Cancelled Uric Acid Crystals Cancelled Triple Phos Crystals Cancelled Other Crystals Cancelled Amorphous Sediment Cancelled Granular Casts Cancelled Waxy Casts Cancelled RBC Casts Cancelled WBC Casts Cancelled Other Casts Cancelled Urine Mucus Cancelled Urine Other Cancelled Urine Trichomonas Cancelled Urine Yeast Cancelled Urine Sperm Cancelled Ur Oval Fat Bodies Cancelled COVID-19 Eval Order SARS-CoV-2 (PCR) Nasopharyn COVID-19 PCR Influenza Type A (PCR) Influenza Type B (PCR) RSV (RT-PCR) 10/14/20 10/15/20 10/15/20 Unknown 06:02 06:02 WBC 4.51 L RBC 4.38 Hgb 14.2 Hct 47.5 H MCV 108.4 H MCH 32.4 MCHC 29.9 L RDW Std Deviation RDW Coeff of Sandy Plt Count 78 L MPV Immature Gran % (Auto) 0.4 Neut % (Auto) 68.1 Lymph % (Auto) 22.6 Mitchell % (Auto) 8.0 Eos % (Auto) 0.9 Baso % (Auto) 0.0 Neut # (Auto) 3.07 Lymph # (Auto) 1.02 L Mitchell # (Auto) 0.36 Eos # (Auto) 0.04 Baso # (Auto) 0.00 Immature Gran # (Auto) 0.02 Platelet Estimate Decreased L Giant Platelets PT INR APTT PTT Ratio Sodium 169 H* Potassium Pending Chloride 138 H Carbon Dioxide 28 Anion Gap 2.0 L BUN 56 H Creatinine 1.36 H D Est Cr Clr Drug Dosing 19.7 Est GFR ( Amer) 40.2 Est GFR (Non-Af Amer) 34.7 BUN/Creatinine Ratio 41.2 H Glucose 113 H POC Glucose Osmolality Calcium 8.4 L Phosphorus Magnesium Total Bilirubin 1.2 H Direct Bilirubin AST 81 H ALT 115 H Alkaline Phosphatase 73 Total Creatine Kinase Troponin I 0.257 H* Total Protein 6.7 Albumin 3.2 L Globulin 3.5 Albumin/Globulin Ratio 0.9 Lipase Beta-Hydroxybutyric Acd TSH Urine Color Urine Appearance Urine pH Ur Specific [place] Urine Protein Urine Glucose (UA) Urine Ketones Urine Blood Urine Nitrite Urine Bilirubin Urine Urobilinogen Ur Leukocyte Esterase Urine WBC (Auto) Urine RBC (Auto) U Hyaline Cast (Auto) U Epithel Cells (Auto) Urine Bacteria (Auto) Ur Renal Epithelial Cell Urine Crystals Calcium Oxalate Crystal Uric Acid Crystals Triple Phos Crystals Other Crystals Amorphous Sediment Granular Casts Waxy Casts RBC Casts WBC Casts Other Casts Urine Mucus Urine Other Urine Trichomonas Urine Yeast Urine Sperm Ur Oval Fat Bodies COVID-19 Eval Order SARS-CoV-2 (PCR) NEGATIVE Nasopharyn COVID-19 PCR Influenza Type A (PCR) Negative Influenza Type B (PCR) Negative RSV (RT-PCR) Negative Medications Administered Current Inpatient Medications Diclofenac Sodium (Diclofenac Sod 1% Gel 100 Gm Tube) 2 gm EXT QID PRN PRN Reason: pain Stop: 11/13/20 20:52 Ezetimibe (Ezetimibe 10 Mg Tablet) 10 mg PO DAILY [facility] Stop: 11/14/20 08:59 Last Admin: 10/15/20 08:05 Dose: 10 mg Documented by: Heparin Sodium (Porcine) (Heparin Sod 5,000 Unit/0.5 Ml Vial) 5,000 units SQ BID [facility] Stop: 11/13/20 20:59 Last Admin: 10/15/20 08:04 Dose: 5,000 units Documented by: Dextrose (D5w) 1,000 mls @ 80 mls/hr IV .[id number] [facility] Stop: 11/13/20 16:59 Last Admin: 10/15/20 08:04 Dose: 125 mls/hr Documented by: Metoprolol Succinate (Metoprolol Succ 25mg Ext Rel Tab) 25 mg PO DAILY [facility] Stop: 11/14/20 08:59 Last Admin: 10/15/20 08:05 Dose: 25 mg Documented by: Multivitamins (Multivitamin Tab) 1 tab PO QAM [facility] Stop: 11/14/20 08:59 Last Admin: 10/15/20 08:05 Dose: 1 tab Documented by: Pantoprazole Sodium (Pantoprazole 40 Mg Tab) 40 mg PO DAILY [facility]; Protocol Stop: 11/14/20 08:59 Last Admin: 10/15/20 08:05 Dose: 40 mg Documented by: PG Care Time/CCT Total # of Minutes Spent Total Time Spent: 38 Total Time Spent with Patient: Total time spent is greater than 50% in coordination of care (as documented) at patient's floor/unit and/or counseling patient: Prolonged Care Time Prolonged Care Time: No Coding Level of Care Code 54173 Subseq Hosp Care Lvl 3 Diagnoses Acute hypernatremia E87.0 Acute metabolic encephalopathy G93.41 Esophageal cancer C15.4 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
[2020-10-15 10:34] LABS: Potassium 3.3 mmol/L (3.5-5.1)
--- NOTE | 2020-10-15 11:00 | Electrocardiogram Report ---
Test Reason : Blood Pressure : / mmHG Vent. Rate : 088 BPM Atrial Rate : 088 BPM P-R Int : 140 ms QRS Dur : 076 ms QT Int : 358 ms P-R-T Axes : 063 -63 -40 degrees QTc Int : 433 ms Normal sinus rhythm Left axis deviation Poor R wave progression, consider anterior VT vs. lead placement vs. LVH Abnormal ECG When compared with ECG of 20-MAR-2020 00:56, Nonspecific T wave abnormality, worse in Inferior leads Nonspecific T wave abnormality, worse in Anterior leads Nonspecific T wave abnormality has replaced inverted T waves in Lateral leads Reconfirmed by Avelino Jiménez ([id number]) on 10/15/2020 11:00:23 AM Referred By: Lizandro Austin Confirmed By:Brendan Jiménez
[2020-10-15 14:53] LABS: Appearance Urine Cloudy (Clear); Bilirubin Urine Negative (Negative); Blood Urine 3+ (Negative); Color Urine Dark Yellow; Epithelial Cell Urine Auto 0-5 /lpf (0-5); Glucose Urine UA Negative (Negative); Ketones Urine Negative (Negative); Leukocyte Esterase Urine 2+ (Negative); Nitrite Urine Positive (Negative); Protein Urine 1+ (Negative); Specific Gravity Urine 1.028 (1.000-1.030); Urobilinogen Urine Negative (Negative); WBC Urine Automated >30 /hpf (0-5)
[2020-10-15 15:08] LABS: Bacteria Urine Automated 2+ (Negative)
[2020-10-15 15:09] LABS: Uric Acid Crystals Urine Present (None Prsent)
[2020-10-15 19:02] LABS: BUN Creatinine Ratio 38.6 (10-20); Calcium 9.1 mg/dl (8.5-10.1); Creatinine Clr Calc Pharmacy 21.2 ml/min; Est GFR (African American) 44.1; Potassium 3.6 mmol/L (3.5-5.1)
[2020-10-16] MEDS: DEXTROSE 5% 1,000 ML IV SCH (04:42)
[2020-10-16] MEDS: EZETIMIBE 10 MG TABLET PO SCH (07:29)
[2020-10-16] MEDS: PANTOprazole 40 MG TAB PO SCH (07:29)
[2020-10-16] MEDS: MULTIVITAMIN TAB PO SCH (07:29)
[2020-10-16] MEDS: METOPROLOL SUCC 25MG EXT REL TAB PO SCH (07:30)
[2020-10-16] MEDS: HEPARIN SOD 5,000 UNIT/0.5 ML VIAL SQ SCH ×2 (07:30→20:00)
--- NOTE | 2020-10-16 10:01 | Hospitalist Progress Note ---
Date of Service October 16, 2020 Assessment & Plan (1) Acute hypernatremia: Secondary to dehydration and not eating or drinking, significant free water deficit D5W @ 80cc/hr, Na down to 165 on 10/15/2020 (2) Acute metabolic encephalopathy: Secondary to hypernatremia also from urinary tract infection present on admission gram-negative bacilli seen in urine culture however, she has dementia that has been getting worse functional decline at home not getting out of wheelchair for months Overall 1 improved family wishes to take home considering outpatient hospice care (3) Esophageal cancer: Is not eating or drinking well the past month 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 Secondary to not eating and drinking due to underlying dementia versus esophageal stenosis/cancer. more hydrated today but still hypovolemic, continue D5W 80cc/hr (6) Acute renal failure: Resolved continue IV fluids (7) Adult failure to thrive: poor nutrition, weak, confused due to dementia, did speak to he wishes to have her come home want to try to improve her status as best we can prior to coming home (8) Ambulatory dysfunction: Most recently wheelchair-bound since August secondary to spinal stenosis and severe osteoarthritis family has some caregivers to help , working on getting more help at home (9) Severe protein-calorie malnutrition: Swallowing is in question given previous history of esophageal radiation changes we will try pured diet with advancement as indicated (10) DVT prophylaxis: Heparin 5000 units SQ twice daily (11) Goals of care, counseling/discussion: I phoned the on 10/16/2020 he is in agreement to consideration of hospice but would like the patient improved to come home they then would like hospice at home We will palliative care consult on 10/17/2020 Admission and Anticipated Discharge Date Admission Date: October 14, 2020 Subjective Na improving with D5W, down to 165 patient is confused, eating a drinking a little but not great Dr Hernandez offered hospice as a realistic goal to take her home family places a lot of value with her staying at home because they know they will be isolated from her at a SNF they believe they have enough resources, especially because she does not walk asked them to talk about DNR status as she is a full code asked if she has a living will discussing code status, artificial hydration and nutrition even if he cannot find it, they need to talk as a family to determine what she would want I told them that CPR, intubation would not benefit her, would not improve quality of life they agree with palliative care consultation on Saturday they know that CM can offer assistance in getting her set up with home hospice Review of Systems Review of Systems: Unobtainable due to cognitive status Physical Exam Physical Exam: The patient appeared malnourished thin pleasantly confused weakened Vital signs as documented. Head exam is normocephalic atraumatic no scleral icterus Neck is without JVD, thyromegaly, or carotid bruits. Lungs are clear to auscultation, decreased breath sounds & poor air movement at the bases Cardiac exam, Rhythm is regular.. Systolic ejection murmur is heard Abdominal exam reveals normal bowel sounds, soft non tender, no masses Extremities are nonedematous and both pedal pulses are present Neurologic exam is alert and she can respond with one-word answers to questions overall very weak Skin is without bruises or rashes Psychologically is with transfer dementia Results & Data Results & Data ([facility]) Vital Signs (Past 12 Hours) Vital Signs Temp Pulse Pulse Resp BP BP Pulse Ox 10/16/20 08:06 97.3 F L 79 20 113/73 97 10/16/20 07:12 68 10/16/20 03:11 97.2 F L 73 18 117/80 95 10/16/20 01:13 76 10/15/20 23:00 97.3 F L 74 20 116/84 95 PG Care Time/CCT Total # of Minutes Spent Total Time Spent with Patient: Total time spent is greater than 50% in coordination of care (as documented) at patient's floor/unit and/or counseling patient: Coding Level of Care Code 24035 Subseq Hosp Care Lvl 3 Diagnoses Acute hypernatremia E87.0 Acute metabolic encephalopathy G93.41 Esophageal cancer C15.4 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
[2020-10-16 16:04] LABS: BUN Creatinine Ratio 30.5 (10-20); Creatinine Clr Calc Pharmacy 25.3 ml/min; Est GFR (African American) 51.3; Est GFR (Non-African American) 44.3; Phosphorus 2.7 mg/dl (2.5-4.9)
[2020-10-16] MEDS: cefTRIAXone SODIUM 2,000 MG in DEXTROSE 5% 50 ML IV SCH (16:11)
[2020-10-16 17:04] LABS: Magnesium 1.9 mg/dl (1.8-2.4); Potassium 2.4 mmol/L (3.5-5.1)
[2020-10-16] MEDS ORDERED: POTASSIUM CHLORIDE 10 MEQ / 100ML WTR IV STA (17:09)
[2020-10-16] MEDS ORDERED: MAGNESIUM SULFATE / D5W 1 GM/100 ML BAG IV ONE (17:30)
[2020-10-16] MEDS: D5W AND 1/2NSS + 20MEQ KCL 20 MEQ/1,000 ML BAG IV SCH (17:56)
[2020-10-16] MEDS: POTASSIUM CHLORIDE / WTR 10 MEQ/100 ML PLCT IV SCH ×4 (17:56→21:02)
[2020-10-17] MEDS: D5W AND 1/2NSS + 20MEQ KCL 20 MEQ/1,000 ML BAG IV SCH ×3 (03:30→23:05)
[2020-10-17 08:32] LABS: BUN Creatinine Ratio 25.4 (10-20); Calcium 8.5 mg/dl (8.5-10.1); Est GFR (African American) 65.3; Est GFR (Non-African American) 56.3; Magnesium 2.5 mg/dl (1.8-2.4); Potassium 3.9 mmol/L (3.5-5.1)
[2020-10-17] MEDS: METOPROLOL SUCC 25MG EXT REL TAB PO SCH (08:44)
[2020-10-17] MEDS: EZETIMIBE 10 MG TABLET PO SCH (08:44)
[2020-10-17] MEDS: PANTOprazole 40 MG TAB PO SCH (08:44)
[2020-10-17] MEDS: MULTIVITAMIN TAB PO SCH (08:44)
[2020-10-17] MEDS: HEPARIN SOD 5,000 UNIT/0.5 ML VIAL SQ SCH ×2 (08:44→20:16)
--- NOTE | 2020-10-17 11:12 | Palliative Care Consultation ---
Date of Consultation October 17, 2020 Assessment & Plan (1) Adult failure to thrive: Expected with progressive dementia. Discussed with her who is concerned about how to get her to eat. OK to eat if she desires food for comfort, however, I explained that decreased intake is a sign that she is approaching her dying time and that she does not have a desire to eat or drink. He seems comfortable with this. (2) Acute hypernatremia: improving with IV hydration (3) Severe protein-calorie malnutrition: (4) Dementia: Dementia behavioral disturbance: with behavioral disturbance Dementia type: unspecified type Qualified Code(s): F03.91 - Unspecified dementia with behavioral disturbance (5) Palliative care encounter: Updated her and discussed her poor prognosis. He understands that her time is short and wants her to be at home for her and to be comfortable. Discussed hospice philosophy and care available. He is agreeable to this but would also like to have caregivers at night to help with her routine care. We discussed code status not consistent with goal of comfort. He had requested continued full code out of concern that she would not receive treatment. Reassured him that we can continue to provide IVF and food for comfort but that CPR and intubation are not consistent with comfort goals. He is agreeable to DNR. Code status changed per our discussion. History of Present Illness Reason for Consultation: goals of care Requesting Physician: Dr. Hernandez Attending Physician: David Matias MD History of Present Illness 89 yo lady with progressive dementia who lives at home with her . He has been caring for her pretty much on his own. He has noted that she has had functional decline over the last two months to the point of being bedbound with little oral intake. She was admitted with mental status changes and a sodium of 171 as well as BANDAR. Renal function has returned to baseline with IV hydration and sodium is improving, now down to152. She is arousable and answers no when asked if having pain and yes when asked if comfortable. She did not accept offer of sips of water or juice. She is a full code on admission and family met with Dr Hrenandez over the weekend to discuss possible return home with hospice care. We have been consulted to assist with goals of care. Allergies Allergy/AdvReac Type Severity Reaction Status Date / Time No Known Allergies Allergy Verified 10/14/20 15:34 Home Medications Medication Instructions Recorded Confirmed Type polyethylene glycol 3350 17 gram 17 g PO DAILY PRN #100 ea 05/18/19 10/14/20 Rx oral powder packet lidocaine 5 % topical patch 1 patch TOPICAL DAILY PRN ea 06/22/19 10/14/20 History memantine 10 mg tablet 10 mg PO BID #60 tab 11/16/19 10/14/20 Rx aspirin 81 mg PO DAILY PRN 01/06/20 10/14/20 History lidocaine HCl [Aspercreme 1 applic TOPICAL QID PRN 01/06/20 10/14/20 History (lidocaine HCl)] multivitamin 1 tab PO QAM 01/06/20 10/14/20 History diclofenac sodium 1 % topical gel 2 g TOPICAL QID PRN #100 g 07/21/20 10/14/20 Rx cephalexin 500 mg PO BID 10/14/20 10/14/20 History donepezil [Aricept] 10 mg PO DAILY 10/14/20 10/14/20 History esomeprazole magnesium 40 mg PO DAILY 10/14/20 10/14/20 History ezetimibe 10 mg PO DAILY 10/14/20 10/14/20 History metoprolol succinate 25 mg PO DAILY 10/14/20 10/14/20 History quetiapine [Seroquel] 25 mg PO HS 10/14/20 10/14/20 History Patient History Medical History Acute gastric ulcer without hemorrhage or perforation Anemia Cerebral atherosclerosis Chronic osteoarthritis Chronic pain syndrome Cognitive impairment Difficulty swallowing Dyslipidemia Dyspnea on exertion Esophageal cancer CHEMO AND RADIATION Esophageal candidiasis Fatigue GERD (gastroesophageal reflux disease) Hyperlipidemia Hypertension Lumbar spinal stenosis Migraine Osteoarthritis Paroxysmal supraventricular tachycardia Severe sleep apnea Syncope LAST EPISODE A COUPLE MONTHS AGO Surgical History History of bilateral cataract extraction History of bowel resection History of cardiac cath 2013 @ [facility], no stents History of cholecystectomy History of colonoscopy History of lumbar spinal fusion History of open reduction and internal fixation (ORIF) procedure right wrist/arm---hardware in place History of open reduction and internal fixation (ORIF) procedure left wrist--hardware in place History of tooth extraction full upper and partial lower dentures History of total replacement of left shoulder joint History of total replacement of right shoulder joint History of total right knee replacement (TKR) History of wisdom tooth extraction Family History Mother Family history of diabetes mellitus Cerebral artery occlusion with cerebral infarction Sister Arthritis Breast cancer Other No family history of adverse response to anesthesia Denies family history of Ovarian cancer Prostate cancer Myocardial infarction Colorectal cancer Social History Smoking Status: Unknown if ever smoked Preferred Language: Somali Communication Ability: Effective 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: No Beliefs That Will Affect Care: None Current Living Situation: Spouse Current Living Situation Comment: lives at home with Feels Safe at Home: Yes Assistive Devices: Oxygen - Continuous Review of Systems Review of Systems: Unobtainable due to cognitive status [place] Symptom Assessment Scale Pain 0/3 Dyspnea 0/3 Anxiety 0/3 Drowsiness 2/3 Anorexia 3/3 Physical Exam Constitutional: + thin, + frail appearing and + lethargic ENMT: Mouth: + dry oral mucous membranes Respiratory: normal respiratory effort; no labored breathing Cardiovascular: Extremities: no edema Musculoskeletal: Extremities: + muscle atrophy Skin: no rashes, warm and dry Results & Data ([facility]) Vital Signs (Past 12 Hours) Vital Signs Temp Pulse Pulse Resp BP BP Pulse Ox 10/17/20 11:08 97.9 F 71 18 123/81 96 10/17/20 08:01 97.7 F 70 18 114/74 100 10/17/20 07:22 71 10/17/20 04:15 98.1 F 72 14 142/88 H 94 10/16/20 23:53 65 10/16/20 23:23 97.9 F 66 14 133/82 99 PG Care Time/CCT Total # of Minutes Spent Total Time Spent with Patient: Total time spent is greater than 50% in coordination of care (as documented) at patient's floor/unit and/or counseling patient:70 minutes with more than 50% of time spent on discussing nutrition, family support, hospice, code status and goals of care. Coding Level of Care Code 42941 Inpt Consult Level 4 Diagnoses Adult failure to thrive R62.7 Acute hypernatremia E87.0 Severe protein-calorie malnutrition E43 Dementia F03.91 Dementia behavioral disturbance: with behavioral disturbance Dementia type: unspecified type Palliative care encounter Z51.5
--- NOTE | 2020-10-17 14:21 | Hospitalist Progress Note ---
Date of Service October 17, 2020 Assessment & Plan (1) Acute hypernatremia: Secondary to dehydration and not eating or drinking, significant free water deficit changing to 1/2 nss at this time to not push sodium down too fast or too much (2) Acute metabolic encephalopathy: Secondary to hypernatremia also from urinary tract infection present on admission gram-negative bacilli seen in urine culture however, she has dementia that has been getting worse functional decline at home not getting out of wheelchair for months Overall 1 improved family wishes to take home considering outpatient hospice care (3) Esophageal cancer: Is not eating or drinking well the past month 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 Secondary to not eating and drinking due to underlying dementia versus esophageal stenosis/cancer. more hydrated today but still hypovolemic, continue D5W 80cc/hr (6) Acute renal failure: Resolved continue IV fluids (7) Adult failure to thrive: poor nutrition, weak, confused due to dementia, did speak to he wishes to have her come home want to try to improve her status as best we can prior to coming home did see palliative care and will try to transition to home hospice (8) Ambulatory dysfunction: Most recently wheelchair-bound since August secondary to spinal stenosis and severe osteoarthritis family has some caregivers to help , working on getting more help at home, transition to home hospice (9) Severe protein-calorie malnutrition: Swallowing is in question given previous history of esophageal radiation changes we will try pured diet (10) DVT prophylaxis: Heparin 5000 units SQ twice daily (11) Goals of care, counseling/discussion: I phoned the on 10/16/2020 he is in agreement to consideration of hospice but would like the patient improved to come home they then would like hospice at home palliative care consult on 10/17/2020 will facilitate home soon Admission and Anticipated Discharge Date Admission Date: October 14, 2020 Subjective pt is slightly more awake and alert, she is still very weak and has not yet eaten Review of Systems Review of Systems: Unobtainable due to cognitive status Physical Exam Physical Exam: The patient appeared chronically ill but more alert today 10/17/20 Vital signs as documented. Lungs are diminished at the bases Cardiac exam, Rhythm is regular.CEDRIC. Abdominal exam reveals normal bowel sounds, soft non tender, no masses Extremities are nonedematous and both pedal pulses are normal. Neurologic exam is alert and answers questions with one or two word answers Results & Data Results & Data ([facility]) Vital Signs (Past 12 Hours) Vital Signs Temp Pulse Pulse Resp BP BP Pulse Ox 10/17/20 11:08 97.9 F 71 18 123/81 96 10/17/20 08:01 97.7 F 70 18 114/74 100 10/17/20 07:22 71 10/17/20 04:15 98.1 F 72 14 142/88 H 94 PG Care Time/CCT Total # of Minutes Spent Total Time Spent with Patient: Total time spent is greater than 50% in coordination of care (as documented) at patient's floor/unit and/or counseling patient: Coding Level of Care Code 74936 Subseq Hosp Care Lvl 3 Diagnoses Acute hypernatremia E87.0 Acute metabolic encephalopathy G93.41 Esophageal cancer C15.4 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
[2020-10-17] MEDS: cefTRIAXone SODIUM 2,000 MG in DEXTROSE 5% 50 ML IV SCH (16:19)
[2020-10-18 07:41] LABS: BUN Creatinine Ratio 18.5 (10-20); Calcium 7.6 mg/dl (8.5-10.1); Creatinine Clr Calc Pharmacy 31.7 ml/min; Est GFR (African American) 67.1; Est GFR (Non-African American) 57.9; Potassium 3.6 mmol/L (3.5-5.1)
[2020-10-18] MEDS: HEPARIN SOD 5,000 UNIT/0.5 ML VIAL SQ SCH ×2 (08:30→20:24)
[2020-10-18] MEDS: D5W AND 1/2NSS + 20MEQ KCL 20 MEQ/1,000 ML BAG IV SCH (08:30)
[2020-10-18] MEDS: EZETIMIBE 10 MG TABLET PO SCH (08:31)
[2020-10-18] MEDS: MULTIVITAMIN TAB PO SCH (08:31)
[2020-10-18] MEDS: METOPROLOL SUCC 25MG EXT REL TAB PO SCH (08:31)
[2020-10-18] MEDS: PANTOprazole 40 MG TAB PO SCH (08:31)
[2020-10-18] MEDS: cefTRIAXone SODIUM 2,000 MG in DEXTROSE 5% 50 ML IV SCH (16:57)
--- NOTE | 2020-10-18 17:11 | Hospitalist Progress Note ---
Date of Service October 18, 2020 Assessment & Plan (1) Acute hypernatremia: Secondary to dehydration and not eating or drinking, significant free water deficit Sodium is improved to 148 her mental status is markedly better (2) Acute metabolic encephalopathy: Secondary to hypernatremia also from urinary tract infection present on admission gram-negative bacilli seen in urine culture however, she has dementia that has been getting worse functional decline at home not getting out of wheelchair for months Overall 1 improved family wishes to take home to initiate outpatient hospice care (3) Esophageal cancer: h/o 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 (6) Acute renal failure: Resolved (7) Adult failure to thrive: poor nutrition, weak, confused due to dementia, did speak to he wishes to have her come home want to try to improve her status as best we can prior to coming home did see palliative care and will try to transition to home hospice (8) Ambulatory dysfunction: Most recently wheelchair-bound since August secondary to spinal stenosis and severe osteoarthritis family has some caregivers to help , working on getting more help at home, transition to home hospice (9) Severe protein-calorie malnutrition: Swallowing is in question given previous history of esophageal radiation changes we continue pured diet (10) DVT prophylaxis: Heparin 5000 units SQ twice daily (11) Goals of care, counseling/discussion: I phoned the on 10/16/2020 he is in agreement to consideration of hospice but would like the patient improved to come home they then would like hospice at home palliative care consult on 10/17/2020 will facilitate home soon attempt to go home on 10/18 were met with the patient's having a medical emergency disposition at this point is unclear Admission and Anticipated Discharge Date Admission Date: October 14, 2020 Subjective pt is significantly more awake and alert, she is still very weak and states she is encouraged to eat, arranging home with hospice care, but did have medial emergency and will need to delay until his health needs are worked out Review of Systems Review of Systems: Unobtainable due to cognitive status Mild distress and fatigue Patient is in a weakened state with a make in mild voice. She does have some baseline swallowing issues but denies any difficulty today no chest pain, pressure or palpitations no shortness of breath, cough or wheezes no abdominal pain, nausea or vomiting, diarrhea or constipation no dysuria, hematuria or frequency no focal joint pain or swelling no back pain, CVA tenderness or radicular pain Overall is very weak and deconditioned but is going home on comfort care measures Physical Exam Physical Exam: The patient appeared chronically ill but more alert each day as she is hydrated and her sodium is improved Vital signs as documented. Lungs are diminished at the bases Cardiac exam, Rhythm is regular.CEDRIC. Abdominal exam reveals normal bowel sounds, soft non tender, no masses Extremities are nonedematous and both pedal pulses are normal. Neurologic exam is alert and answers questions with one or two word answers Results & Data Results & Data (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 Dementia F03.91 Dementia behavioral disturbance: with behavioral disturbance Dementia type: unspecified type Acute dehydration E86.0 Acute renal failure N17.9 Acute renal failure type: unspecified Adult failure to thrive R62.7 Ambulatory dysfunction R26.2 Severe protein-calorie malnutrition E43 DVT prophylaxis Z29.9 Goals of care, counseling/discussion Z71.89 (1) Esophageal cancer 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
[2020-10-19] MEDS: PANTOprazole 40 MG TAB PO SCH (07:38)
[2020-10-19] MEDS: METOPROLOL SUCC 25MG EXT REL TAB PO SCH (07:39)
[2020-10-19] MEDS: MULTIVITAMIN TAB PO SCH (07:39)
[2020-10-19] MEDS: HEPARIN SOD 5,000 UNIT/0.5 ML VIAL SQ SCH (07:40)
--- NOTE | 2020-10-19 12:29 | Discharge Summary ---
Date of Service October 19, 2020 Admission HPI Per Admitting Provider Reshma Robles is an 89-year-old female who presents to the ER with altered mental status. Unable to take history from the patient due to altered mental state therefore history taken from at bedside and electronic health record. reports rapid the progressive decline over the last month to the point of her not eating or drinking anything the last 2 days. He reports 2 months ago she was having no mobility or memory issues. This is clearly different from her PCP notes in August recommending assisted living due to her dementia, diagnosis of Alzheimer's disease on Namenda and donepezil with noted slow, progressive neurological decline with worsening reversal of days and nights and starting to have some aggression at night therefore started on Seroquel. She was wheelchair bound at that time and remained so up until the last 2 days per her when now she is bedbound. She also has a significant history of esophageal cancer treated with chemotherapy and most recently had severe esophageal stenosis dilated in May. In the ER labs were concerning for sodium of 171. I discussed this with her that we may be able to help with improvement with IV hydration however with her underlying progressive dementia it is likely that this will recur again unless she was artificially hydrated. We also discussed likelihood that this fluid could end up on her lungs causing respiratory distress in the light of her severe malnutrition. We discussed the likely futility of resuscitation in the event of a cardiac arrest and the potential harm chest compressions could cause - he wishes to have all available treatments at this time. Principal Diagnosis hypernatremia secondary to functional decline secondary to history of esophageal cancer Discharge Exam The patient appeared thin and chronically ill she is underweight BMI of 17 Vital signs as documented. Lungs are diminished at the bases but appear unlabored Cardiac exam, Rhythm is regular.. Like ejection murmur is heard Abdominal exam reveals normal bowel sounds, soft non tender, no masses Extremities are nonedematous and both pedal pulses are normal. Neurologic exam is alert and oriented x2, overall she is very weak Skin is without bruises or rashes Discharge Data Allergies Allergy/AdvReac Type Severity Reaction Status Date / Time No Known Allergies Allergy Verified 10/14/20 15:34 Consultations 10/14/20 16:34 ED Decision to Admit Stat 10/15/20 19:25 Consult Palliative Care Routine Ordered Studies 10/14/20 14:09 CT head/brain wo con Stat Hospital Course (1) Acute hypernatremia: Secondary to dehydration and not eating or drinking, significant free water deficit Sodium is improved to 148 her mental status is markedly better (2) Acute metabolic encephalopathy: Secondary to hypernatremia also from urinary tract infection present on admission gram-negative bacilli seen in urine culture however, she has dementia that has been getting worse functional decline at home not getting out of wheelchair for months Overall 1 improved family wishes to take home to initiate outpatient hospice care, did have ceftriaxone antibiotics while here (3) Esophageal cancer: h/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 (6) Acute renal failure: Resolved (7) Adult failure to thrive: poor nutrition, weak, confused due to dementia, did speak to he wishes to have her come home want to try to improve her status as best we can prior to coming home did see palliative care and will try to transition to home hospice (8) Ambulatory dysfunction: Most recently wheelchair-bound since August secondary to spinal stenosis and severe osteoarthritis family has some caregivers to help , working on getting more help at home, transition to home hospice (9) Severe protein-calorie malnutrition: Swallowing is in question given previous history of esophageal radiation changes we continue pured diet (10) DVT prophylaxis: Heparin 5000 units SQ twice daily (11) Goals of care, counseling/discussion: I phoned the on 10/16/2020 he is in agreement to consideration of hospice but would like the patient improved to come home they then would like hospice at home palliative care consult on 10/17/2020 will facilitate home soon attempt to go home on 10/18 were met with the patient's having a medical emergency disposition at this point is unclear Total Time Total Time Spent Total Time Spent (In Minutes): It required greater than 30 minutes to prepare this patient for discharge Discharge Plan Discharge Items Patient Disposition: Hospice - Home Reason For Visit: Altered Mental State, hypernatremia Discharge Diagnosis: metabolic encephalopathy secondary to high blood sodium Activity: Per Instructions section Non-emergency contact: Primary Care Provider Call non-emergency contact if: your symptoms worsen Follow-up/Referrals: Lizandro Austin MD [Primary Care Provider] - Diet: Regular Diet Texture: Easy to Chew Addtl Attending Provider Instructions: please continue to allow your to do what she wishes but encourage her to eat and drink as much as she wants Pending Studies at Discharge: No Stand-Alone Forms: [facility] Medications and DC Order Prescriptions: Continued diclofenac sodium [Voltaren] 1 % gel 2 g topical QID PRN (Reason: pain) Qty: 100 RF: 2 lidocaine 5 % adhesive patch,medicated 1 patch topical DAILY PRN (Reason: Pain) RF: 0 aspirin 81 mg Tablet,Delayed Release (Dr/Ec) 81 mg PO DAILY PRN (Reason: Pain) RF: 0 lidocaine HCl [Aspercreme (lidocaine HCl)] 4 % Cream 1 applic TOPICAL QID PRN (Reason: Pain) RF: 0 quetiapine [Seroquel] 25 mg tablet 25 mg PO HS RF: 0 esomeprazole magnesium 40 mg capsule,delayed release(DR/EC) 40 mg PO DAILY RF: 0 metoprolol succinate 25 mg Tablet Extended Release 24 Hr 25 mg PO DAILY RF: 0 Discontinued memantine 10 mg tablet 10 mg PO BID Qty: 60 RF: 5 polyethylene glycol 3350 [Miralax] 17 gram powder in packet 17 g PO DAILY PRN (Reason: Constipation) Qty: 100 RF: 1 multivitamin tablet 1 tab PO QAM RF: 0 donepezil [Aricept] 10 mg tablet 10 mg PO DAILY RF: 0 cephalexin 500 mg capsule 500 mg PO BID RF: 0 ezetimibe 10 mg tablet 10 mg PO DAILY RF: 0 Discharge Orders: Discharge Order (Routine); Ordered 10/19/20 Ordered By: David Matias Admission Data Admit Date/Time: 10/14/20 17:00 Attending Provider: David Matias Admit Provider: Beltran Chapin Primary Care Provider: Lizandro Austin Other Providers: 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
[2020-10-19 15:17] VITALS: BP 113/75; PULSE 71; TEMP 98.4; O2SAT 95
== END 2020-10-19 17:30 | disposition hospice, home (50) | DRG 640 ==
LOC: ED 13:18 → SUATTDRO 17:00 → 2W 17:00